=== PATIENT | male | born 1975 ===

== ENCOUNTER 2023-12-30 16:46 | Emergency (ER) | payer MEDICAID, SELFPAY ==
[2023-12-30 16:55] VITALS: BP 168/84; PULSE 92; RESP 20; TEMP 36.7; O2SAT 98; BMI 33.1
--- NOTE | 2023-12-30 16:56 | ED_ITS ---
HPI - General Adult General Chief complaint: General Medical Stated complaint: itchiness/ pain in penis, painful urination Time Seen by Provider: 12/30/23 19:28 Source: patient, RN notes reviewed and old records reviewed Mode of arrival: ambulatory History of Present Illness HPI narrative: 48-year-old male presents for evaluation of burning itching to to his penis. Patient reports that his partner tested positive for syphilis within the last 2 weeks. The patient initially tested negative but he was not having symptoms until a couple of days ago He now complains of burning itching to his penis and with urinating He also reports itching around his anus Denies any unusual discharge, testicular pain and swelling Denies any fevers, chills Related Data Allergies Allergy/AdvReac Type Severity Reaction Status Date / Time diphenhydramine Allergy Palpitation Verified 12/30/23 16:58 [From Hardik] s Review of Systems 2 Constitutional: Constitutional: Denies body ache(s), Denies chills and Denies fever(s) Eyes: Eyes: Denies blurry vision ENT: Denies sore throat Cardiovascular: Cardiovascular: Denies chest pain and Denies dyspnea Respiratory: Respiratory: Denies cough and Denies dyspnea Gastrointestinal: Gastrointestinal: Denies abdominal pain, Denies nausea and Denies vomiting Genitourinary: Genitourinary: Denies hematuria, Reports genital lesions, Reports genital pain, Reports dysuria and Denies penile discharge Musculoskeletal: Musculoskeletal: Denies back pain Psychiatric: Psychiatric: Denies suicidal ideation PMFSH Social History Social History Advance Directives: No Advance Directives Information Provided: No Do you have a plan to hurt others: No Plan Physical Exam ED Vital Signs: Vital Signs - 24 hr 12/30/23 16:55 Temperature 98.1 F Pulse Rate 92 Respiratory Rate 20 Blood Pressure 168/84 H Pulse Oximetry 98 Oxygen Delivery Method Room Air BMI result Body Mass Index 33.1 Const General: healthy appearing, comfortable, no acute distress, alert and awake Nutritional Appearance: well nourished Orientation/consciousness: patient oriented x3 HENMT Head: Yes normocephalic and Yes atraumatic Neck Neck: Yes full ROM Resp Effort & Inspection: normal respiratory effort, able to speak in complete sentences and not labored Male General Exam: No Genital lesions present Penis: uncircumcised, erythematous, no masses, no nodules, no papules, no pustules and No Genital lesions present Meatus: no meatla discharge and No Blood at meatus present Skin General skin exam: elasticity normal Neuro General: patient oriented x3 Cranial nerves: Yes Bilaterally intact EOM present Cognition (Neuro): normal cognition Extrem Other: Moving all extremities well without any obvious deformities Course Course Course Narrative: This is an RME done by JEREMI Ortega: Additional HPI, ROS, PE not included below will be deferred to primary provider. 48 yo m presents w/ partner concerned for rash and discomfort in trudy area rectum and penis. Partner recently tested + for syphillis and is getting treated for it. He thinks he tested negative. No penile trauma, discharge, fevers, chills, cp, sob, nausea, vomiting, abd pain. He does report he has a rash down there. Had labs at [facility] Appearance: Alert.? Oriented X3.? No acute cardiopulmonary distress distress.? CVS: Pulses normal.? Respiratory: No respiratory distress.? Skin: ? Normal skin color. Extremities: 5/5 strength to bilateral upper and lower extremities Sensative exam: not done due to lack of privacy in triage Neuro: Oriented X 3.? No motor deficit.? No sensory deficit. Medical Decision Making Medical Decision Making [facility] Narrative: 48-year-old male presents for evaluation of redness, pain to the tip his penis. This areas erythematous. There are no ulcerations or lesions. He reports his partner recently tested positive for syphilis. The patient was tested for numerous STIs. He will be treated with penicillin G for syphilis given the positive contacts and the fact that he is now asymptomatic. Differential Diagnosis Differential Diagnoses: The differential diagnosis associated with the presentation includes Syphilis Urethritis Acute rash Phimosis Balanitis Lab Data [facility] Lab Attestation statement: I reviewed the patient's lab results. No leukocytosis the patient has a very mild anemia with a hemoglobin 13.8 and hematocrit 38.3. MCV is within normal limits. Platelet count is 157 K. electrolytes within normal limits 12/30/23 17:16 12/30/23 17:16 Labs: Lab Results 12/30/23 12/30/23 Range/Units 17:16 17:26 WBC 5.8 (4.8-10.8) X10*3/uL RBC 4.52 L (4.60-5.80) X10*6/uL Hgb 13.8 L (14.0-18.0) g/dl Hct 38.3 L (42.0-52.0) % MCV 84.7 (80.0-98.0) fL MCH 30.5 (27.0-33.0) pg MCHC 36.0 (31.0-36.0) g/dl RDW 11.9 (11.0-16.0) % Plt Count 157 L (160-400) X10*3/uL MPV 11.9 (9.4-12.4) fL Immature Gran % (Auto) 0.3 (0.0-0.4) % Neut % (Auto) 63.8 (45-73) % Lymph % (Auto) 26.2 (20-40) % [place] % (Auto) 8.0 (2-11) % Eos % (Auto) 1.4 (0-4) % Baso % (Auto) 0.3 (0-2) % Lymph # (Auto) 1.5 (1.2-4.9) X10*3/uL [place] # (Auto) 0.5 (0.1-1.2) X10*3/uL Eos # (Auto) 0.1 (0.0-0.4) X10*3/uL Baso # (Auto) 0.0 (0.0-0.2) X10*3/uL Abs Immat Gran (auto) 0.02 (0.00-0.03) X10*3/uL Absolute Neuts (auto) 3.7 (2.0-8.3) x10*3/uL Absolute Nucleated RBC 0.000 (0.0-0.012) X10*3/uL Nucleated RBC % (auto) 0.0 (0.0-0.2) /100WBC Sodium 137 (135-145) mmol/L Potassium 3.9 (3.3-5.1) mmol/L Chloride 104 (96-108) mmol/L Carbon Dioxide 19 L (22-29) mmol/L Anion Gap 18 (12-20) BUN 14 (9-16) mg/dL Creatinine 0.84 (0.5-1.4) mg/dL Estim Creat Clear Calc 105.0 Estimated GFR > 60 Random Glucose 280 H (60-115) mg/dL Calcium 8.7 (8.4-10.2) mg/dL Magnesium 2.0 (1.6-2.6) mg/dL Total Bilirubin 0.4 (0.0-1.0) mg/dL AST 20 (5-37) U/L ALT 52 H (0-40) U/L Alkaline Phosphatase 89 (39-117) U/L Total Protein 6.8 (6.5-8.0) g/dL Albumin 4.1 (3.5-5.0) g/dL Urine Color Yellow Urine Appearance Clear Urine pH 6.5 (5.0-9.0) Ur Specific [place] 1.020 (1.005-1.025) Urine Protein Negative (Neg-Trace) mg/dL Urine Glucose (UA) >=1000 H (Negative) mg/dL Urine Ketones Trace (Negative) mg/dL Urine Blood Negative (Negative) Urine Nitrite Negative (Negative) Ur Leukocyte Esterase Negative (Negative) Urine RBC 0-2 (0-2) /HPF Urine WBC 0-5 (0-5) /HPF Ur Squamous Epith Cells 0-2 (0-2) /HPF Urine Bacteria None Seen (None Seen) Hyaline Casts 0-2 (0-2) /LPF Discharge Plan Discharge Clinical Impression: Dysuria Patient Disposition: Home, Self-Care Instructions: Syphilis (ED) Additional Instructions: Your blood work was reassuring. Your urine sample was negative for UTI. Your STI testing will not result today, we will call you with any positive results. You were treated for syphilis given your positive contact Follow-up with your primary doctor, return for new or worsening symptoms Print Language: Swedish
[2023-12-30 17:20] LABS: MANUAL DIFF FLAG NO
[2023-12-30 17:21] LABS: Basophils Percent Auto 0.3 % (0-2); Eosinophils Absolute Auto 0.1 X10*3/uL (0.0-0.4); Eosinophils Percent Auto 1.4 % (0-4); Hematocrit 38.3 % (42.0-52.0); Hemoglobin 13.8 g/dl (14.0-18.0); Imm Gran Abs Auto 0.02 X10*3/uL (0.00-0.03); Imm Gran Pct Auto 0.3 % (0.0-0.4); Lymphocytes Absolute Auto 1.5 X10*3/uL (1.2-4.9); Lymphocytes Percent Auto 26.2 % (20-40); Mean Corpuscular Hemoglobin 30.5 pg (27.0-33.0); Mean Corpuscular Volume 84.7 fL (80.0-98.0); Mean Platelet Volume 11.9 fL (9.4-12.4); Monocytes Absolute Auto 0.5 X10*3/uL (0.1-1.2); Neutrophils Absolute Auto 3.7 x10*3/uL (2.0-8.3); Neutrophils Percent Auto 63.8 % (45-73); Platelet Count 157 X10*3/uL (160-400); Red Blood Count 4.52 X10*6/uL (4.60-5.80); Red Cell Distribution Width 11.9 % (11.0-16.0); White Blood Count 5.8 X10*3/uL (4.8-10.8)
[2023-12-30 17:34] LABS: Appearance Urine Clear; Color Urine Yellow; Glucose Urine UA >=1000 mg/dL (Negative); Leukocyte Esterase Urine Negative (Negative); Nitrite Urine Negative (Negative); PH 6.5 (5.0-9.0); UMIC TRIGGER UACC YES; Urine Blood Negative (Negative); Urine Ketones Trace mg/dL (Negative); Urine Protein Negative (Neg-Trace)
[2023-12-30 17:38] LABS: Alanine Aminotransferase 52 U/L (0-40); Albumin Level 4.1 g/dL (3.5-5.0); Alkaline Phosphatase 89 U/L (39-117); Anion Gap 18 (12-20); Aspartate Amino Transferase 20 U/L (5-37); Bilirubin Total 0.4 mg/dL (0.0-1.0); Blood Urea Nitrogen 14 mg/dL (9-16); Calcium 8.7 mg/dL (8.4-10.2); Carbon Dioxide 19 mmol/L (22-29); Chloride 104 mmol/L (96-108); Estimated Glomerular Filt Rate > 60; Glucose Random 280 mg/dL (60-115); Potassium 3.9 mmol/L (3.3-5.1); Sodium 137 mmol/L (135-145); Total Protein 6.8 g/dL (6.5-8.0)
[2023-12-30 17:39] LABS: Bacteria Urine None Seen (None Seen); Hyaline Casts Urine 0-2 /LPF (0-2); RBC Urine 0-2 /HPF (0-2); Squamous Epithelial Cell Urine 0-2 /HPF (0-2); WBC Urine 0-5 /HPF (0-5)
[2023-12-30] MEDS: Penicillin G Benzathine 2,400,000 UNIT/4 ML SYRINGE 2400000 UNIT IM (20:12)
--- NOTE | 2023-12-30 20:19 | PC.NURSE ---
pt medicated per order and discharged with help of guest service representative
[2023-12-30 20:20] VITALS: BP 151/78; PULSE 88; RESP 18; TEMP 36.7; O2SAT 98
[2023-12-31 03:40] LABS: CT PCR NOT DETECTED (Not Detect.); NG PCR NOT DETECTED (Not Detect.)
[2023-12-31 10:16] LABS: Syphilis Screen Nonreactive (Nonreactive)
[2023-12-31 10:23] LABS: HBS Num1 > 1000.00 mIU/mL (0-7.99); HBc Num1 0.12 S/CO (0.00-0.79); HBsAGNum1 0.33 S/CO (0.00-0.99); HIV AB/AG Nonreactive (Nonreactive); HIV Num 1 0.05 S/CO (0.00-0.99); Hepatitis A Antibody IgM 0.15 Index (0-0.79); Hepatitis B Core Antibody Nonreactive (Nonreactive); Hepatitis B Surface Antigen Negative (Negative); ~HepC Num1 0.13 S/CO (0.00-0.79); ~Hepatitis A Antibody IgM Nonreactive (Nonreactive); ~Hepatitis B Surface Antibody REACTIVE (Nonreactive); ~Hepatitis C Antibody Nonreactive (Nonreactive)
== END 2023-12-30 20:21 | disposition home or self-care (01) ==
PROVIDERS: Physician Assistant; Emergency Provider Internal Medicine
DX: R30.0 Dysuria (principal); R21 Rash and other nonspecific skin eruption; Z72.89 Other problems related to lifestyle
CPT/HCPCS: 0353U; 36415; 80053; 81001; 83735; 85025; 86704; 86706; 86709; 86780; 86803; 87340; 87389; 96372; 99282; 99284; J0561

== ENCOUNTER 2024-01-09 10:34 | Emergency (ER) | payer MEDICAID, SELFPAY ==
[2024-01-09 10:48] VITALS: BP 152/117; PULSE 96; RESP 18; TEMP 36.4; O2SAT 97; BMI 32.8
[2024-01-09 12:00] VITALS: BP 127/86; PULSE 105; TEMP 36.6; O2SAT 96
--- NOTE | 2024-01-09 12:22 | ED.MALEGU ---
HPI - Male Genitourinary General Chief complaint: Urogenital-Male Stated complaint: ?? per jazzy private Time Seen by Provider: 01/09/24 12:19 Source: patient, RN notes reviewed and old records reviewed Mode of arrival: ambulatory History of Present Illness ED Provider: Capri Bullard PA-C HPI Narrative: 48-year-old male with no significant past medical history presenting to the ED complaining of continued penile discomfort/irritation and erythema & improving rash s/p tested positive for syphilis recently. Patient was seen and treated in our ED on 12/30/2023 for similar symptoms, had negative testing including syphilis testing at that time, & was empirically treated with penicillin G. reports continued concern for syphilis. Denies dysuria/hematuria, penile lesions, penile discharge, testicular pain/swelling, fever/chills, travel Related Data Previous Rx's ?Medication ?Instructions ?Recorded clotrimazole 1 % topical cream 1 appl topical BID 2 weeks #15 01/09/24 grams Allergies Allergy/AdvReac Type Severity Reaction Status Date / Time diphenhydramine Allergy Palpitation Verified 01/09/24 10:50 [From Hardik] s Review of Systems Review of Systems: Constitutional: No Fever, No Chills, No Fatigue, No Malaise ENT/Mouth: No Hearing loss, No Ear Pain, No Nasal Congestion, No sore throat, No Rhinorrhea Cardiovascular: No Chest Pain, No SOB Respiratory: No Cough, No Sputum Gastrointestinal: No Nausea, No Vomiting, No Abdominal pain Genitourinary: +penile discomfort/irritation, No irregular bleeding, No Dysuria, No Urinary Frequency, No Hematuria, No Urinary Incontinence/retention, No Flank Pain Musculoskeletal: No joint pain, No Myalgias, No Joint Swelling Skin: No Skin Lesions, No rash Neuro: No Weakness, No Numbness, No Paresthesias Yes all other systems are reviewed and are negative Constitutional: Constitutional: Reports as per [facility] Past Medical History Attestation statement: The following information was validated with the patient. Source: old records reviewed Social History Social History Advance Directives: No Advance Directives Information Provided: Yes Physical Exam Vital Signs: Vital Signs: Last Vital Signs Temp 97.9 F 01/09/24 12:00 Pulse 105 H 01/09/24 12:00 Resp 18 01/09/24 10:48 BP 127/86 01/09/24 12:00 Pulse Ox 96 01/09/24 12:00 O2 Del Method Room Air 01/09/24 12:00 BMI result Body Mass Index 32.8 Const: General: cooperative, healthy appearing and no acute distress Orientation/consciousness: patient oriented x3 Limitations: no limitations HEENT: Head: Yes normal to inspection and Yes atraumatic Ears: hearing grossly normal bilaterally General nose exam: Normal external nose present Face and sinus: Yes normal facial exam Eyes: General: appearance normal, both eyes and all related structures EOM: EOMs intact bilaterally Neck: Neck: Yes normal visual inspection and Yes no meningeal signs Resp: Effort & Inspection: normal respiratory effort and no respiratory distress Cardio: Rate: regular rate GI: Inspection: Yes normal to inspection Palpation (GI): Soft to palpation, nontender, no guarding and not rigid : Other: No lesions/open wounds, meatal discharge or blood. No pustules General: Yes no CVA tenderness Penis: uncircumcised and erythematous (Mild erythema to distal shaft and trudy-meatus) Back/Spine/Pelvis: Back: no CVA tenderness Skin: Other: scant erythematous rash noted to abdomen/back without streaking/crusting or open wounds. Wounds: no wounds Neuro: General: patient oriented x3, tone normal and no meningeal signs Cranial nerves: Yes CN's II-XII intact bilaterally Gait exam (Neuro): Normal gait present Extrem: General: Yes normal to inspection Course Course Course Narrative: -UA noninfected Medical Decision Making Medical Decision Making MDM Narrative: 48-year-old male with no significant past medical history presenting to the ED complaining of continued penile discomfort/irritation and erythema & improving rash s/p tested positive for syphilis recently. On exam mildly tachycardic likely from anxiety, NAD, nontoxic appearing, physical exam as noted above. Concern for possible balanitis vs irritation worse latent syphilis although recent testing negative for syphilis, chlamydia/gonorrhea, HIV and hepatitis. Low suspicion for testicular torsion or intra-abdominal pathology Plan: UA, infectious disease follow-up. Case discussed with ED attending Dr. Callahan who is in agreement with plan Please refer to course for remaining clinical decision making, interpretation of labs/imaging results, and discussions with consultants and/or family members. Results discussed with patient including worrisome signs and symptoms and strict return precautions, and when to return to the emergency department. They verbalized understanding and feel safe for discharge at this time. Differential Diagnosis Differential Diagnoses: The differential diagnosis associated with the presentation includes As above Lab Data MDM Lab Attestation statement: I reviewed the patient's lab results. Labs: Lab Results 01/09/24 Range/Units 13:16 Urine Color Yellow Urine Appearance Clear Urine pH 5.5 (5.0-9.0) Ur Specific [place] >= 1.030 H (1.005-1.025) Urine Protein Negative (Neg-Trace) mg/dL Urine Glucose (UA) >=1000 H (Negative) mg/dL Urine Ketones Trace (Negative) mg/dL Urine Blood Negative (Negative) Urine Nitrite Negative (Negative) Ur Leukocyte Esterase Negative (Negative) Urine RBC 0-2 (0-2) /HPF Urine WBC 0-5 (0-5) /HPF Ur Squamous Epith Cells 0-2 (0-2) /HPF Urine Bacteria None Seen (None Seen) Hyaline Casts 0-2 (0-2) /LPF External Record Review External record reviewed: Inpatient record, Office record, Outpatient record, Prior outpatient labs, Prior outpatient radiology, Primary care record and Outside ED record Tests considered The following testing was considered but not selected: As above Discharge Plan Discharge Clinical Impression: Possible exposure to STI, Balanitis Patient Disposition: Home, Self-Care Instructions: Syphilis (ED), Balanitis (ED) Additional Instructions: PLEASE FOLLOW-UP WITH INFECTIOUS DISEASE, CALL TOMORROW TO MAKE AN APPOINTMENT Clotrimazole cream will help with penile irritation Avoid sexual contact until you follow-up with specialist If rash or penile discomfort worsens, you have fever or your unable to urinate return to the ED Prescriptions: New clotrimazole 1 % cream 1 appl topical BID 14 Days Qty: 15 0RF Referrals: JANIE JURADO MD [Physician] - 1 day Print Language: Bengali
--- NOTE | 2024-01-09 13:22 | PC.NURSE ---
PT SITTING IN BEDSIDE CHAIR IN NO OUTWARD DISTRESS, HE WAS ABLE TO PROVIDE A URINE SPECIMEN, AWAITING RESULTS
[2024-01-09 13:31] LABS: Appearance Urine Clear; Color Urine Yellow; Glucose Urine UA >=1000 mg/dL (Negative); Leukocyte Esterase Urine Negative (Negative); Nitrite Urine Negative (Negative); PH 5.5 (5.0-9.0); Specific Gravity - Urine >= 1.030 (1.005-1.025); UMIC TRIGGER UACC YES; Urine Blood Negative (Negative); Urine Ketones Trace mg/dL (Negative); Urine Protein Negative (Neg-Trace)
[2024-01-09 13:40] LABS: Bacteria Urine None Seen (None Seen); Hyaline Casts Urine 0-2 /LPF (0-2); RBC Urine 0-2 /HPF (0-2); Squamous Epithelial Cell Urine 0-2 /HPF (0-2); WBC Urine 0-5 /HPF (0-5)
[2024-01-09 14:16] VITALS: BP 127/86; PULSE 105; RESP 18; TEMP 36.6; O2SAT 96
== END 2024-01-09 14:17 | disposition home or self-care (01) ==
PROVIDERS: Physician Assistant; Emergency Provider Student in an Organized Health Care Education/Training Program
DX: N48.1 Balanitis (principal); Z20.2 Contact with and (suspected) exposure to infections with a predominantly sexual mode of transmission
CPT/HCPCS: 81001; 99283

== ENCOUNTER 2024-01-10 15:38 | Outpatient (REF) | payer MEDICAID, SELFPAY ==
[2024-01-12 14:41] LABS: Estimated Glomerular Filt Rate > 60
[2024-01-12 14:44] LABS: Blood Urea Nitrogen 16 mg/dL (9-16); Carbon Dioxide 17 mmol/L (22-29); Chloride 88 mmol/L (96-108); Potassium 4.4 mmol/L (3.3-5.1); Sodium 123 mmol/L (135-145)
[2024-01-12 14:45] LABS: Glucose Random 346 mg/dL (60-115)
== END 2024-01-10 15:39 | disposition home or self-care (01) ==
LOC: HO.HHCL 15:38
PROVIDERS: Visit Provider Nurse Practitioner Family
DX: Z20.2 Contact with and (suspected) exposure to infections with a predominantly sexual mode of transmission (principal)
CPT/HCPCS: 36415; 80048; 86592

== ENCOUNTER 2024-01-30 16:24 | Outpatient (REF) | payer MEDICAID, SELFPAY ==
[2024-01-30 18:04] LABS: Anion Gap 13 (12-20); Blood Urea Nitrogen 15 mg/dL (9-16); Calcium 8.9 mg/dL (8.4-10.2); Carbon Dioxide 23 mmol/L (22-29); Chloride 111 mmol/L (96-108); Estimated Glomerular Filt Rate > 60; Glucose Random 109 mg/dL (60-115); Potassium 3.7 mmol/L (3.3-5.1); Sodium 143 mmol/L (135-145)
[2024-02-01 15:37] LABS: RPR Rapid Plasma Reagin NON-REACTIVE (NON-REACTIVE)
== END 2024-01-30 16:25 | disposition home or self-care (01) ==
LOC: HO.HHCL 16:24
PROVIDERS: Visit Provider Nurse Practitioner Family
DX: Z20.2 Contact with and (suspected) exposure to infections with a predominantly sexual mode of transmission (principal)
CPT/HCPCS: 36415; 80048; 86592

== ENCOUNTER 2024-02-08 12:24 | Outpatient (REF) | payer MEDICAID, SELFPAY ==
--- NOTE | ~2024-02-08 | XR_ITS ---
EXAMINATION: XR CERVICAL SPINE CLINICAL INFORMATION: Neck pain COMPARISON: None available. TECHNIQUE: 3 views of the cervical spine were obtained. FINDINGS: There is moderate disc space narrowing C5-C6. Prevertebral soft tissues normal. No fracture or destructive process. The lateral masses of C1 and odontoid intact. XR/XR cervical spine 3V IMPRESSION: Degenerative changes observed. No fracture.
== END 2024-02-08 12:25 | disposition home or self-care (01) ==
LOC: HO.HHCX 12:24
PROVIDERS: Visit Provider Emergency Medicine
DX: M54.2 Cervicalgia (principal)
CPT/HCPCS: 72040

== ENCOUNTER 2024-02-17 17:22 | Outpatient (REF) | payer MEDICAID, SELFPAY | END 2024-02-17 17:23 | disposition home or self-care (01) | LOC: HO.LNP 17:22 | PROVIDERS: Visit Provider Emergency Medicine | DX: K21.9 Gastro-esophageal reflux disease without esophagitis (principal) | CPT/HCPCS: 87338 ==

== ENCOUNTER 2024-04-18 15:07 | Outpatient (REF) | payer MEDICAID, SELFPAY ==
--- NOTE | ~2024-04-18 | XR_ITS ---
EXAMINATION: XR SHOULDER, LEFT CLINICAL INFORMATION: Left shoulder pain. Adhesive capsulitis. COMPARISON: None available. TECHNIQUE: AP external rotation, Grashey, scapular Y, and axillary views of the left shoulder. FINDINGS: The bones and soft tissues are normal. No fracture. Glenohumeral and acromioclavicular alignment is anatomic with normal joint space. No abnormal soft tissue calcifications. XR/XR shoulder LT min 2V IMPRESSION: Unremarkable examination. Electronically signed by: Eddie Chan MD 05/03/2024 08:40 PM EDT
== END 2024-04-18 15:08 | disposition home or self-care (01) ==
LOC: HO.HHCX 15:07
PROVIDERS: Visit Provider Student in an Organized Health Care Education/Training Program
DX: M75.02 Adhesive capsulitis of left shoulder (principal)
CPT/HCPCS: 73030

== ENCOUNTER 2024-06-20 14:40 | Outpatient (REF) | payer MEDICAID, SELFPAY ==
--- NOTE | ~2024-06-20 | XR_ITS ---
EXAMINATION: XR LUMBOSACRAL SPINE CLINICAL INFORMATION: Low back pain COMPARISON: None available. TECHNIQUE: Three views of the lumbosacral spine. FINDINGS: No fracture or destructive process or alignment abnormality. Vertebral body heights and disc space heights are preserved. XR/XR lumbar spine 2-3V IMPRESSION: Unremarkable examination. Electronically signed by: Robel Burk MD 06/20/2024 05:54 PM EST
== END 2024-06-20 14:41 | disposition home or self-care (01) ==
LOC: HO.HHCX 14:40
PROVIDERS: Visit Provider Student in an Organized Health Care Education/Training Program
DX: M54.50 Low back pain, unspecified (principal)
CPT/HCPCS: 72100

== ENCOUNTER 2024-09-26 09:47 | Outpatient (REF) | payer MEDICAID, SELFPAY ==
--- NOTE | ~2024-09-26 | XR_ITS ---
EXAMINATION: XR HIP, RIGHT CLINICAL INFORMATION: 4 month h/o atraumatic right hip pain COMPARISON: None available. TECHNIQUE: Two views of the right hip. FINDINGS: No fracture. Alignment is anatomic. Hip joint space is maintained. Soft tissues are unremarkable. XR/XR hip RT min 2V IMPRESSION: Normal right hip. Electronically signed by: Douglas Parker MD 09/26/2024 10:37 AM KAVIN
--- OUTSIDE RECORDS SUMMARY | 2024-09-26 11:21 | XMS_ITS | Encounter Summary ---
Author Organization [employer] Address [address] [place] [address] 7 [place] [address] Care Team Providers Care Lamp Shade Sewer Name Role Phone Sherly Ballard MD Primary Care Pro vider Reason for Visit * Reason Onset Date Comments Nurse Triage 08/28/2024 Encounter Details Date Type Department Care Team ([facility] st Contact Info) Description 08/28/2024 Telephone [facility] MED[facility]INE [address] [place], [place] [phone] Sherly Ballard MD [address] [place] [address] Nurse Triage Social History Tobacco Use Types Packs/Day Years Used Date Smoking Tobacco: Former Cigarettes Passive Smoke Exposure: Past Smokeless Tobacco: Never Comments:Started smoking 28 y of age until now , smokes 5 cig a week -aprox 0.5 to 1 a day . PQT calc 1.05 Alcohol Use Standard Drinks/Week Comments Yes 0 (1 standard drink = 0.6 oz pur e alcohol) social Depression Answer Date Recorded Patient Health Questionnaire-9 Score 6 05/02/2024 Patient Health Questionnaire-9 Score 6 05/02/2024 Last PHQ-9: Questionnaire Data Not on file 0 05/02/2024 Housing Stability Answer Date Recorded What is your housing situation today? I have tonya anna 04/25/[address] you li ve. Do you have problems with any of the following? None of the above 04/25/2024 Food Insecurity Answer Date Recorded Within the past 12 months, y ou worried that your food would run out before you got money to buy more: Never True 04/25/2024 Within the past 12 months,th e food you bought just didn't last and you didn't have enough money to get more: Never True 06/2024 Transportation Answer Date Recorded In the past 12 months, has l ack of transportation kept you from medical appts, meetings, work or from getting things needed for daily living? No 04/25/2024 Utilities Answer Date Recorded In the past 12 months, has t he electric, gas, oil or water company threatened to shut off services in your home? No 04/25/2024 Depression Answer Date Recorded Patient Health Questionnaire-2 Score 0 05/02/2024 Internet Access Answer Date Recorded Internet Access Q1 Yes 04/25/2024 Internet Access Q2 Not on file 04/25/2024 Sex and Gender Information Value Date Recorded Sex Assigned at Male 01/10/2024 1:01 PM EDT Legal Sex Male 12:57 PM EDT Gender Identity Male 01/10/2024 1:01 PM EDT Sexual Orientation Straight 01/10/2024 1: 01 PM EDT documented as of this encounter Miscellaneous Notes * Telephone Encounter - Selina Summers RN - 08/28/2024 9:38 AM EST called pt to triage, spoke to pt. through [employer] [facility]. pt states several days durationof congestion, cough, sore throat, fatigue,, body aches, and headache with mild fever. pt states does not know how high his fever went as he is taking Tylenol Q4 hours. pt denies known exposures, known high fever, rash, sob, vomiting or other associated symptoms. pt speaking in full sentences without pausing or audible distress/wheezing. advised home care: rest, fluids, steam, humidifier, warm saltwater gargles, lozenges, OTC pain or fever reliever as needed, and call back if worsening or new concerns. unable to verify insurance, listed as inactive. advised walk in center if needed as pt doesnot want to wait until tomorrow for appt. Protocol Used: Cough (Adult) Protocol-Based Disposition: See in Office or Video Visit Today or Tomorrow Video visit offer not recorded Positive Triage Questions: * Continuous (nonstop) coughing interferes with work or school and no improvement using cough treatment per Care Advice * Patient wants to be seen * All higher-acuity triage questions were negative Care Advice Discussed: * Reassurance and Education - Cough * Cough Medicines * Coughing Spells * Prevent Dehydration * Avoid Tobacco Smoke * Humidifier * Fever Medicines * Reasons To Call Back - Difficulty breathing - Cough lasts more than 3 weeks - Fever lasts more than 3 days - You become worse * Telephone Encounter - Jc Baird - 08/28/2024 8:25 AM EST Symptoms: Runny Nose, Fever, Body Aches Outcome: Schedule an appointment to be seen within 24 hours Reason: Caller denied all higher acuity questions The caller accepted this outcome. documented in this encounter Plan of Treatment Upcoming Encounters Date Type Department Care Team (Late st Contact Info) Description 10/03/2024 3:30 PM EST Clinical Support [facility] [address] [place] [phone] documented as of this encounter Visit Diagnoses Not on filedocumented in this encounter Additional Health Concerns Assessment Noted Time PHQ-9 Depression Total Score: 6 05/02/20 24 9:38 AM EDT documented as of this encounter Care Teams Lamp Shade Sewer Relationship Specialty Start Date End Date Sherly Ballard MD [address] [place] [id number] PCP - General Internal Medicine 05/02/24 documented as of this encounter
--- OUTSIDE RECORDS SUMMARY | 2024-09-26 11:22 | XMS_ITS | Encounter Summary ---
Author Organization [employer] Address [address] [place] [address] [address] [place] [address] Care Team Providers Care Management Trainer Name Role Phone Sherly Ballard MD Primary Care Pro vider Reason for Visit * Reason Onset Date Comments Nurse Triage 09/20/2024 Encounter Details Date Type Department Care Team ([facility] st Contact Info) Description 09/20/2024 Telephone [facility] MEDICINE [address] [place], [place] [phone] Sherly Ballard MD [address] [place] [address] Nurse Triage Social History Tobacco Use Types [...] encounter Miscellaneous Notes * Telephone Encounter - Erika Ordoñez RN - 09/20/2024 11:09 AM EST Called pt. Via S railroad firer/fireman while waiting for railroad firer/fireman , I see pt. Is currently in walk in [facility] and has arrived. Due to eye irriatation, swollen eyelid,redness. * Telephone Encounter - Al Ureña - 09/20/2024 10:40 AM EST Symptoms: Eye Allergy, Body Aches Outcome: Schedule an urgent appointment (within 4 hours) or talk to a nurse or provider soon Reason: Eyelid is red and swollen The caller accepted this outcome. documented in this encounter Plan of Treatment Upcoming Encounters Date Type Department Care Team (Late st Contact Info) Description 10/03/2024 3:30 PM EST Clinical Support [facility] MED[facility]INE [address] [place] [id number] documented as of this encounter Visit Diagnoses Not on filedocumented in this encounter Additional Health Concerns Assessment Noted Time PHQ-9 Depression Total Score: 6 05/02/20 24 9:38 AM EDT documented as of this encounter Care Teams Management Trainer Relationship Specialty Start Date End Date Sherly Ballard MD [address] [place] [id number] PCP - General Internal Medicine 05/02/24 documented as of this encounter
--- OUTSIDE RECORDS SUMMARY | 2024-09-26 11:22 | XMS_ITS | Encounter Summary ---
Author Organization [employer] Address [address] [facility] [address] [place] [address] Care Team Providers Care Low Altitude Air Defense Gunner Name Role Phone Sherly Ballard MD Primary Care Pro vider Encounter Details Date Type Department Care Team (Latest Contact Info) Description 09/26/2024 9:00 AM EST Office Visit 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 Social History Tobacco Use Types Packs/Day Years [...] PM EDT documented as of this encounter Last Filed Vital Signs Vital Sign Reading Time Taken Comments Blood Pressure 130/98 09/26/2024 9:46 AM EST Pulse 80 09/26/2024 8:48 AM EST Temperature 36.7 ??C (98.1 ??F) 09/26/2024 8:48 AM ES T Respiratory Rate 17 09/26/2024 8:48 AM EST Oxygen Saturation 97% 09/26/2024 8:48 AM EST Inhaled Oxygen Concentration - - Weight 83.6 kg (184 lb 6.4 oz) 09/26/2024 8:48 A M EST Height - - Body Mass Index 31.65 09/24/2024 3:47 PM EST documented in this encounter Plan of Treatment Upcoming Encounters Date Type Department Care Team (Late st Contact Info) Description 10/03/2024 3:30 PM EST Clinical Support [facility] [address] [place] [phone] documented as of this encounter Procedures Procedure Name Priority Date/Time Associated Diagnosis Comments XR HIP 2 OR 3 VIEWS RIGHT Routine 09/26/2024 9:48 AM EST Right hip pain documented in this encounter Results * XR Hip 2 or 3 Views Right (09/26/2024 9:48 AM EST) Anatomical Region Laterality Modality Lower Extremities, Hip Right Radiograp hic Imaging 09/26/2024 9:48 AM EST Narrative 09/26/2024 10:40 AM EST ?[facility] ?[address] ?[place], [place] [address] ?XRay Report ? Signed ? Patient: Mirza Pugh,Rakan ?MR#: [id number] ?? [id number] ? : 1975 ?Acct:[id number] ? Age/Sex: 49 / M ?ADM Date: 09/26/24 ? Loc: HO.HHCX ? Attending Dr: Fernando Madrid MD ? Ordering Physician: FERNANDO MADRID MD ?? Date of Service: 09/26/24 ?? Procedure(s): XR hip RT min 2V ?? Accession Number(s): [id number] ? cc: FERNANDO MADRID MD ? EXAMINATION: ?? XR HIP, RIGHT ? CLINICAL INFORMATION: ?? 4 month h/o atraumatic right hip pain ? COMPARISON: ?? None available. ? TECHNIQUE: ?? Two views of the right hip. ? FINDINGS: ?? No fracture. Alignment is anatomic. Hip joint space is maintained. Soft ?? tissues are unremarkable. ? XR/XR hip RT min 2V ?? IMPRESSION: ?? Normal right hip. ? Electronically signed by: ??Douglas Parker MD ??09/26/2024 10:37 AM EST RP ? Dictated By: ?Douglas Parker MD ? Signed By: ?<Electronically signed by Douglas Parker MD in OV> ?09/26/24 1037 ? DD/ 0948 ? TD/TT: 09/26/24 1008 ? Rail Washer: MSM ? Procedure Note Tamika, Image - 09/26/2024 [facility] [address] [place] [address] XRay Report Signed Patient: Rakan Gutierrez#: [id number] : 1975Acct:[id number] Age/Sex: 49 / MADM Date: 09/26/24 Loc: HO.HHCX Attending Dr: Fernando Madrid MD Ordering Physician: FERNANDO MADRID MD Date of Service: 09/26/24 Procedure(s): XR hip RT min 2V Accession Number(s): [id number] cc: FERNANDO MADRID MD EXAMINATION: XR HIP, RIGHT CLINICAL INFORMATION: 4 month h/o atraumatic right hip pain COMPARISON: None available. TECHNIQUE: Two views of the right hip. FINDINGS: No fracture. Alignment is anatomic. Hip joint space is maintained. Soft tissues are unremarkable. XR/XR hip RT min 2V IMPRESSION: Normal right hip. 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
--- OUTSIDE RECORDS SUMMARY | 2024-09-26 11:22 | XMS_ITS | Encounter Summary ---
Author Organization [employer] Address [address] [facility] 7[address] [place] [address] Care Team Providers Care Tissue Technologist Name Role Phone Sherly Ballard MD Primary Care Pro vider Encounter Details Date Type Department Care Team (Late Contact Info) Description 04/15/2024 Orders Only [facility] [address] [place], [place] [phone] Bhavana Cary FNP [address] [place] [address] Sexually transmitted disease exposure (Primary Dx) Social History Tobacco Use Types Packs/Day Years Used Date Smoking Tobacco: Former Cigarettes Passive Smoke Exposure: Past Smokeless Tobacco: Never Sex and Gender Information Value Date Recorded Sex Assigned at Male 01/10/2024 1:01 PM EDT Legal Sex Male 12:57 PM EDT Gender Identity Male 01/10/2024 1:01 PM EDT Sexual Orientation Straight 01/10/2024 1: 01 PM EDT documented as of this encounter Plan of Treatment Upcoming Encounters Date Type Department Care Team (Late Contact Info) Description 10/03/2024 3:30 PM EST Clinical Support [facility] [address] [place] [phone] Scheduled Orders Name Type Priority Associated Diagnoses Orde r Schedule RPR (Monitor) with Reflex to??[facility] Routine Sexually transmitted disease exposure Expected: 04/15/2024 (Approximate), Expires: 04/15/2025 documented as of this encounter Visit Diagnoses Diagnosis Sexually transmitted disease exposure- Primary Contact with or exposure to venereal diseases documented in this encounter Care Teams Tissue Technologist Relationship Specialty Start Date End Date Sherly Ballard MD [address] [place] [phone] PCP - General Internal Medicine 05/02/24 documented as of this encounter
--- OUTSIDE RECORDS SUMMARY | 2024-09-26 11:22 | XMS_ITS | Encounter Summary ---
Author Organization [employer] Address [address] [place] [address] Care Team Providers Care Recreation Attendant Name Role Phone Sherly Ballard MD Primary Care Pro vider Reason for Visit * Reason Comments Eye Problem Encounter Details Date Type Department Care Team (Latest Contact Info) Description 09/24/2024 4:00 PM EST Office Visit [facility] [address] [place] [phone] Natacha Mendieta MD [address] [place] [address] Allergic conjunctivitis of both eyes (Primary Dx); Right hip pain; Primary hypertension Social History Tobacco Use Types Packs/Day Years Used Date Smoking Tobacco: Former Cigarettes Passive Smoke Exposure: Past Smokeless Tobacco: Never Tobacco Cessation:Counseling Given: Not Answered Comments:Started smoking 28 y of age until [...] your housing situation today? I have tonya castillo 04/25/[address] you li [...] Sign Reading Time Taken Comments Blood Pressure 158/98 09/24/2024 3:47 PM EST Pulse 85 09/24/2024 3:47 PM EST Temperature 36.6 ??C (97.9 ??F) 09/24/2024 3:47 PM ES T Respiratory Rate 16 09/24/2024 3:47 PM EST Oxygen Saturation - - Inhaled Oxygen Concentration - - Weight 83.6 kg (184 lb 6.4 oz) 09/24/2024 3:47 P M EST Height 162.6 cm (5' 4 ) 09/24/2024 3:47 PM EST Body Mass Index 31.65 09/24/2024 3:47 PM EST documented in this encounter Progress Notes * Natacha Mendieta MD - 09/24/2024 4:00 PM EST SUBJECTIVE: Rakan Pugh is a 49 y.o. year old male who presents for Walk In Center/itchy eyes . Deniesrecent illness, injury, or hospitalization. Acute Concerns: Patient complaining of bilateral eye itchiness for approximately 1 week after using antibiotic ointment to both eyes apparently related to conjunctivitis. He has occasional blurred vision, no fever, chills, headache. He was treated for COVID last month, he does not have any other symptoms at this time. 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 He also complains of persistent right hip and leg pain on and off as needed pain for now he was seen for the symptoms approximately 2 months ago, x-rays were normal and he was given meloxicam, tizanidine and referred to PT. He has been unable to do PT due to work commitments. At this day, he has difficulty with ambulation, standing for long periods of time. Negative leg numbness, urinary or stoolretention. Social History Social History Narrative Not on file Patient Active Problem List Diagnosis Tinnitus of left ear HTN (hypertension) Health care maintenance Obesity Type 2 diabetes mellitus without complication, without long-term current use of insulin ([facility]) Tobacco use H. pylori infection GERD (gastroesophageal reflux disease) Chronic left shoulder pain Thumb pain, left Viral upper respiratory tract infection COVID-19 Allergic conjunctivitis of both eyes Right hip pain Family History Problem Relation Name Age of Onset Other (HTN) Mother Other (DM2,CAD) Father Other (unspecified cancer) Mother's Brother Throat cancer Maternal Grandmother Review of Systems Constitutional: Negative for fever. HENT: Negative for congestion, ear pain, rhinorrhea and sore throat. Eyes: Positive for redness, itching and visual disturbance. Negative for pain and discharge. Respiratory: Negative for cough and shortness of breath. Cardiovascular: Negative for chest pain. Gastrointestinal: Negative for abdominal pain, constipation, diarrhea and nausea. Endocrine: Negative for polydipsia. Genitourinary: Negative for dysuria and frequency. Musculoskeletal: Positive for arthralgias. Negative for back pain and neck pain. Neurological: Negative for dizziness, numbness and headaches. Psychiatric/Behavioral: Negative for agitation. OBJECTIVE: Vitals: 09/24/24 1547 BP: (!) 158/98 Pulse: 85 Resp: 16 Temp: 97.9 ??F (36.6 ??C) Physical Exam Constitutional: Appearance: Normal appearance. HENT: Right Ear: Tympanic membrane and ear canal normal. Left Ear: Tympanic membrane and ear canal normal. Mouth/Throat: Mouth: Mucous membranes are moist. Pharynx: No oropharyngeal exudate or posterior oropharyngeal erythema. Eyes: General: Allergic shiner present. Extraocular Movements: Extraocular movements intact. Conjunctiva/sclera: Right eye: Right conjunctiva is injected. Left eye: Left conjunctiva is injected. Pupils: Pupils are equal, round, and reactive to light. Cardiovascular: Rate and Rhythm: Normal rate and regular rhythm. Heart sounds: No murmur heard. Pulmonary: Breath sounds: Normal breath sounds. No wheezing. Abdominal: General: Bowel sounds are normal. Palpations: Abdomen is soft. Tenderness: There is no abdominal tenderness. Musculoskeletal: Cervical back: Normal range of motion. No tenderness. Lumbar back: Tenderness present. Right hip: Tenderness present. Decreased range of motion. Skin: General: Skin is warm. Neurological: General: No focal deficit present. Mental Status: He is alert and oriented to person, place, and time. Psychiatric: Mood and Affect: Mood normal. Problem List Items Addressed This Visit Allergic conjunctivitis of both eyes - Primary He has mostly dry eyes, advised to use natural tears as needed He will use ketotifen eyedrops twice daily to decrease itchiness and swelling of eyelids. Right hip pain Patient seems to have right hip bursitis, advised to reschedule appointment with PT and he could bring [place] documents to allow him to go to PT sessions. Restart meloxicam daily x 1 week then as needed HTN (hypertension) Uncontrolled today most likely related to right leg pain. Continue losartan and check BP at home, follow-up with PCP as scheduled or earlier if BP continues to be above 145/90. Follow Up: Current Outpatient Medications on File Prior to Visit Medication Sig Dispense Refill acetaminophen (Tylenol Extra Strength) 500 MG tablet Take 1 tablet (500 mg) by mouth every 6 (six) hours if needed for mild pain. 120 tablet 0 acetaminophen (Tylenol) 500 MG tablet Take 2 tablets (1,000 mg) by mouth every 8 (eight) hours if needed for moderate pain or fever. 30 tablet 1 albuterol 108 (90 Base) MCG/ACT inhaler Inhale 2 puffs every 4 (four) hours if needed for wheezing or shortness of breath. 18 g 1 Alcohol Swabs (Alcohol Prep) pads 1 each 4 times daily. 120 each 0 Blood Glucose Monitoring Suppl (RaiingStyle Lite) w/Device kit 1 each 4 times daily. 1 kit 0 Blood Pressure kit 1 each 2 times daily. 1 kit 0 Diclofenac Sodium 1 % gel To apply to the affected area 3 times a day 100 g 0 erythromycin (Romycin) 5 MG/GM ophthalmic ointment Apply to affected eye(s) 3 times daily for 5 days. Apply Amount per Dose: 0.25 inch (~0.5 cm) per dose. 3.5 g 0 fluticasone (Flonase) 50 MCG/ACT nasal spray Administer 1 spray into each nostril Once per day. 16 g 2 FREESTYLE LITE test strip Use as instructed 100 each 12 Lancets Ultra Thin 30G misc 1 each 4 times daily. 120 each 1 lidocaine (Lidoderm) 5 % patch Apply 1 patch topically Once per day. Remove & discard patch within 12 hours or as directed by MD. 30 patch 2 losartan (Cozaar) 25 MG tablet TAKE 1 TABLET BY MOUTH EVERY DAY 90 tablet 0 omeprazole (PriLOSEC) [address] capsule Take 1 capsule (20 mg) by mouth before breakfast and before evening meal for 14 days. Do not crush or chew. 28 capsule 0 Spacer/Aero-Holding Chambers (OptiChamber Lorena) misc 1 each every 4 (four) hours if needed (asthma). 1 each 0 tiZANidine (Zanaflex) 2 MG tablet Take 1 tablet (2 mg) by mouth every 6 (six) hours if needed for muscle spasms for up to 10 days. 30 tablet 0 [DISCONTINUED] ibuprofen 600 MG tablet Take 1 tablet (600 mg) by mouth every 8 (eight) hours if needed for mild pain for up to 7 days. HOLD MELOXICAM WHEN TAKING THIS MEDICATION (LEBANESE) 20 tablet 0 [DISCONTINUED] meloxicam (Mobic) 7.5 MG tablet Take 1 tablet (7.5 mg) by mouth Once per day. 60 tablet 11 No current facility-administered medications on file prior to visit. documented in this encounter Miscellaneous Notes * Assessment & Plan Note - Natacha Mendieta MD - 09/24/2024 4:31 PM EST Associated Problem(s): Allergic conjunctivitis of both eyes He has mostly dry eyes, advised to use natural tears as needed He will use ketotifen eyedrops twice daily to decrease itchiness and swelling of eyelids. * Assessment & Plan Note - Natacha Mendieta MD - 09/24/2024 4:31 PM EST Associated Problem(s): Right hip pain Patient seems to have right hip bursitis, advised to reschedule appointment with PT and he could bring FMLA documents to allow him to go to PT sessions. Restart meloxicam daily x 1 week then as needed * Assessment & Plan Note - Natacha Mendieta MD - 09/24/2024 4:30 PM EST Associated Problem(s): HTN (hypertension) Uncontrolled today most likely related to right leg pain. Continue losartan and check BP at home, follow-up with PCP as scheduled or earlier if BP continues to be above 145/90. documented in this encounter Plan of Treatment Upcoming Encounters Date Type Department Care Team (Late st Contact Info) Description 10/03/2024 3:30 PM EST Clinical Support [facility] [address] [place] [phone] documented as of this encounter Visit Diagnoses Diagnosis Allergic conjunctivitis of both eyes- Primary Other chronic allergic conjunctivitis Right hip pain Pain in joint, pelvic region and thigh Primary hypertension Unspecified essential hypertension documented in this encounter Additional Health Concerns Assessment Noted Time PHQ-9 Depression Total Score: 6 05/02/20 24 9:38 AM EDT documented as of this encounter Care Teams Recreation Attendant Relationship Specialty Start Date End Date Sherly Ballard MD [address] [place] [address] PCP - General Internal Medicine 05/02/24 documented as of this encounter
--- OUTSIDE RECORDS SUMMARY | 2024-09-26 11:22 | XMS_ITS | Encounter Summary ---
Author Organization [employer] Address [address] [facility] [address] [place] [address] Care Team Providers Care Commercial Hvac Technician Name Role Phone Sherly Ballard MD Primary Care Pro vider Reason for Visit * Reason Comments Med Refill Encounter Details Date Type Department Care Team (Late st Contact Info) Description 04/10/2024 Refill [facility] [address] [place] [phone] Bradly Vann MD [address] [place] [phone] Degenerative arthritis of metacarpophalangeal joint of right [...] Description 10/03/2024 3:30 PM EST Clinical Support [facility] [address] [place] [address] documented as of this encounter Visit Diagnoses Diagnosis 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
--- OUTSIDE RECORDS SUMMARY | 2024-09-26 11:22 | XMS_ITS | Encounter Summary ---
Author Organization [employer] Address [address] [facility] [address] [place] [address] Care Team Providers Care Capacity Planning Analyst Name Role Phone Sherly Ballard MD Primary Care Pro vider Reason for Visit * Reason Comments sick visit Encounter Details Date Type Department Care Team ([facility] st Contact Info) Description 08/29/2024 4:00 PM EST Office Visit [facility] [address] [place] [address] [phone] Natacha Mendieta MD [address] [place] [phone] Viral upper respiratory tract infection (Primary Dx); COVID-19 Social History Tobacco Use Types Packs/Day Years [...] Sign Reading Time Taken Comments Blood Pressure 156/93 08/29/2024 3:56 PM EST Pulse 86 08/29/2024 3:56 PM EST Temperature 37.1 ??C (98.8 ??F) 08/29/2024 3:56 PM ES T Respiratory Rate 20 08/29/2024 3:56 PM EST Oxygen Saturation 98% 08/29/2024 3:56 PM EST Inhaled Oxygen Concentration - - Weight 83.2 kg (183 lb 6.4 oz) 08/29/2024 3:56 P M EST Height 162.6 cm (5' 4 ) 08/29/2024 3:56 PM EST Body Mass Index 31.48 08/29/2024 3:56 PM EST documented in this encounter Progress Notes * Natacha Mendieta MD - 08/29/2024 4:00 PM EST SUBJECTIVE: Rakan Pugh is a 49 y.o. year old male who presents for [facility]/URI sxs . Denies recent illness, injury, or hospitalization. Acute Concerns: Sore throat, fever, chills, body aches x 3d. He has nasal congestion, SALINAS, eye pain since this morning. He lives with his and his stepchildren. and one of the kids have similar sxs. Social History Social History Narrative Not on file Patient Active Problem List Diagnosis Tinnitus of left ear HTN (hypertension) Health care maintenance Obesity Type 2 diabetes mellitus without complication, without long-term current use of insulin ([facility]) Tobacco use H. pylori infection GERD (gastroesophageal reflux disease) Chronic left shoulder pain Thumb pain, left Viral upper respiratory tract infection COVID-19 Family History Problem Relation Name Age of Onset Other (HTN) Mother Other (DM2,CAD) Father Other (unspecified cancer) Mother's Brother Throat cancer Maternal Grandmother Review of Systems Constitutional: Positive for chills, fatigue and fever. HENT: Positive for congestion and sore throat. Negative for ear pain and rhinorrhea. Eyes: Positive for pain. Negative for discharge. Respiratory: Negative for cough and shortness of breath. Cardiovascular: Negative for chest pain. Gastrointestinal: Negative for abdominal pain, constipation, diarrhea and nausea. Endocrine: Negative for polydipsia. Genitourinary: Negative for dysuria and frequency. Musculoskeletal: Positive for myalgias. Negative for arthralgias, back pain and neck pain. Neurological: Positive for headaches. Negative for dizziness and numbness. Psychiatric/Behavioral: Negative for agitation. OBJECTIVE: Vitals: 08/29/24 1556 BP: (!) 156/93 Pulse: 86 Resp: 20 Temp: 98.8 ??F (37.1 ??C) SpO2: 98% Physical Exam Constitutional: Appearance: Normal appearance. HENT: Right Ear: Tympanic membrane and ear canal normal. Left Ear: Tympanic membrane and ear canal normal. Mouth/Throat: Mouth: Mucous membranes are moist. Pharynx: No oropharyngeal exudate or posterior oropharyngeal erythema. Eyes: Pupils: Pupils are equal, round, and reactive to light. Cardiovascular: Rate and Rhythm: Normal rate and regular rhythm. Heart sounds: No murmur heard. Pulmonary: Breath sounds: Normal breath sounds. No wheezing. Abdominal: General: Bowel sounds are normal. Palpations: Abdomen is soft. Tenderness: There is no abdominal tenderness. Musculoskeletal: General: No tenderness. Normal range of motion. Cervical back: Normal range of motion. No tenderness. Skin: General: Skin is warm. Neurological: General: No focal deficit present. Mental Status: She is alert and oriented to person, place, and time. Psychiatric: Mood and Affect: Mood normal. Office Visit on 08/29/2024 Component Date Value Ref Range Status Rapid COVID Ag 08/29/2024 Positive Final QC Media Lot # 08/29/2024 [id number] Final Lot# Expiration Date 08/29/2024 [id number] Final Influenza A 08/29/2024 Negative Negative, Indeterminate Final Influenza B 08/29/2024 Negative Negative, Indeterminate Final Rapid Strep A Screen 08/29/2024 Negative Negative, None Detected Final ASSESSMENT/PLAN Problem List Items Addressed This Visit COVID-19 Rx Paxlovid x 5 days, [place] interactions module checked, no significant interactions found. Isolation until 09/01 and he will be out of work until then. Can be out of isolation, wearing a mask from 09/02 until 09/06/24, if sxs are resolved without other meds for at least 24h. Counseled to let close contacts within the past week, know about dx so they can be tested if needed. Rest (sleep at least 8 hours a night). Wash hands frequently Hydrate with plenty of water. Use saline nose drops Take Acetaminophen or Ibuprofen as Prn fever or discomfort Gargle with salt water and use throat sprays/lozenges prn Use heated, humidified air or take hot showers. If you have a fever, stay home and away from others (self isolation) until fever-free for 72 hours (temperature should be less than 100??F without medication). Viral upper respiratory tract infection - Primary Has covid 19 Relevant Orders POCT Rapid Covid-19 BinaxNOW (Completed) POCT Rapid Influenza A KOEHLER ID NOW (Completed) POCT Rapid Influenza B KOEHLER ID NOW (Completed) POCT Rapid Strep A KOEHLER ID NOW (Completed) Follow Up: Current Outpatient Medications on File Prior to Visit Medication Sig Dispense Refill acetaminophen (Tylenol) 500 MG tablet Take 2 [...] 120 each 0 Blood Glucose Monitoring Suppl (FreeStyle Lite) w/Device kit 1 each 4 times daily. 1 kit 0 Blood Pressure kit 1 each 2 times daily. 1 kit 0 Diclofenac Sodium 1 % gel To apply to the affected area 3 times a day 100 g 0 FREESTYLE LITE test strip Use as instructed [...] BY MOUTH EVERY DAY 90 tablet 0 meloxicam (Mobic) 7.5 MG tablet Take 1 tablet (7.5 mg) by mouth Once per day. 60 tablet 11 omeprazole (PriLOSEC) [address] capsule Take [...] to 10 days. 30 tablet 0 [DISCONTINUED] fluticasone (Flonase Allergy Relief) 50 MCG/ACT nasal spray Administer 1 spray into each nostril Once per day. Shake gently. Before first use, prime pump. After use, clean tip and replace cap. 16 g 12 No current facility-administered medications on file prior to visit. documented in this encounter Miscellaneous Notes * Assessment & Plan Note - Natacha Mendieta MD - 08/29/2024 4:34 PM EST Associated Problem(s): Viral upper respiratory tract infection Has covid 19 * Assessment & Plan Note - Natacha Mendieta MD - 08/29/2024 4:34 PM EST Associated Problem(s): COVID-19 Rx Paxlovid x 5 days, [place] interactions module checked, no significant interactions found. Isolation until 09/01 and he will be out of work until then. Can be out of isolation, wearing a mask from 09/02 until 09/06/24, if sxs are resolved without other meds for at least 24h. Counseled to let close contacts within the past week, know about dx so they can be tested if needed. Rest (sleep at least 8 hours a night). Wash hands frequently Hydrate with plenty of water. Use saline nose drops Take Acetaminophen or Ibuprofen as Prn fever or discomfort Gargle with salt water and use throat sprays/lozenges prn Use heated, humidified air or take hot showers. If you have a fever, stay home and away from others (self isolation) until fever-free for 72 hours (temperature should be less than 100??F without medication). documented in this encounter Plan of Treatment Upcoming Encounters Date Type Department Care Team (Late st Contact Info) Description 10/03/2024 3:30 PM EST Clinical Support [facility] [address] [place] [phone] documented as of this encounter Procedures Procedure Name Priority Date/Time Associated Diagnosis Comments POCT INFLUENZA B (ID NOW RAPID MOLECULAR) Routine 08/29/2024 4:21 PM EST Viral upper respiratory tract infection POCT INFLUENZA A (ID NOW RAPID MOLECULAR) Routine 08/29/2024 4:21 PM EST Viral upper respiratory tract infection POC KOEHLER ID NOW STREP A Routine 08/29/2024 4:21 PM EST Viral upper respiratory tract infection POCT RAPID COVID ANTIGEN Routine 08/29/2024 4:21 PM EST Viral upper respiratory tract infection documented in this encounter Results * POCT Rapid Strep A KOEHLER ID NOW (08/29/2024 4:21 PM EST) [facility] Rapid Strep A Screen Negative Negative, None Detected Swab 08/29/2024 4:21 PM EST us Natacha Mendieta MD POINT OF CARE TEST ENTER /EDIT ORDERABLES Final Result * POCT Rapid Influenza B KOEHLER ID NOW (08/29/2024 4:21 PM EST) [facility] Influenza B Negative Negative, Indeterminate [facility] Swab 08/29/2024 4:21 PM EST us Natacha Mendieta MD POINT OF CARE TEST ENTER /EDIT ORDERABLES Final Result Performing Organization Address City/[facility]/ZIP Co de Phone Number [facility] [address] [place] [phone] * POCT Rapid Influenza A KOEHLER ID NOW (08/29/2024 4:21 PM EST) [facility] Influenza A Negative Negative, Indeterminate [facility] Swab 08/29/2024 4:21 PM EST us Natacha Mendieta MD POINT OF CARE TEST ENTER /EDIT ORDERABLES Final Result Performing Organization Address [facility] Co de Phone Number [facility] [address] [place] [phone] * (ABNORMAL) POCT Rapid Covid-19 BinaxNOW (08/29/2024 4:21 PM EST) [facility] Rapid COVID Ag Positive [facility] QC Media Lot # [id number] [facility] Lot# Expiration Date [id number] [facility] Swab 08/29/2024 4:21 PM EST Natacha Mendieta MD POINT OF CARE TEST ENTER /EDIT ORDERABLES Final Result Performing Organization Address [facility] Co de Phone Number [facility] [address] [place] [phone] documented in this encounter Visit Diagnoses Diagnosis Viral upper respiratory tract infection- Primary Acute upper respiratory infections of unspecified site COVID-19 documented in this encounter Additional Health Concerns Assessment Noted Time PHQ-9 Depression Total Score: 6 05/02/20 24 9:38 AM EDT documented as of this encounter Care Teams Capacity Planning Analyst Relationship Specialty Start Date End Date Sherly Ballard MD [address] [place] [phone] PCP - General Internal Medicine 05/02/24 documented as of this encounter
--- OUTSIDE RECORDS SUMMARY | 2024-09-26 11:22 | XMS_ITS | Clinical Summary ---
Author Organization [employer] Address [address] [facility] 7[address] [place] [address] Care Team Providers Care Pipe Line Repairer Name Role Phone Sherly Ballard MD Primary Care Pro vider Allergies No known active allergies Medications Blood Pressure kit 1 each 2 times daily. 1 kit 024 2024 Active Lancets Ultra Thin 30G misc 1 each 4 times daily. 120 each 1 024 Active Alcohol Swabs (Alcohol Prep) pads 1 each 4 times daily. 120 each Active FREESTYLE LITE test strip Use as instructed 100 each 12 Active Blood Glucose Monitoring Suppl (FreeStyle Lite) w/Device kit 1 each 4 times daily. 1 kit Active lidocaine (Lidoderm) 5 % patch Apply 1 patch topically Once per day. Remove & discard patch within 12 hours or as directed by . 30 patch 2 024 2024 Active albuterol 108 (90 Base) MCG/ACT inhaler Inhale 2 puffs every 4 (four) hours if needed for wheezing or shortness of breath. 18 g 1 024 2024 Active Spacer/Aero-Holding Chambers (OptiChamber Lorena) misc 1 each every 4 (four) hours if needed (asthma). 1 each Active losartan (Cozaar) 25 MG tablet TAKE 1 TABLET BY MOUTH EVERY DAY 90 tablet Active acetaminophen (Tylenol Extra Strength) 500 MG tablet Take 1 tablet (500 mg) by mouth every 6 (six) hours if needed for mild pain. 120 tablet 025 2024 Active fluticasone (Flonase) 50 MCG/ACT nasal spray Administer 1 spray into each nostril Once per day. 16 g 2 025 2024 Active meloxicam (Mobic) 7.5 MG tablet 1-2 tab po daily prn pain 60 tablet Active Polyvinyl Alcohol-Povidone 5-6 MG/ML solution Administer 2 drops into affected eye(s) every 4 (four) hours if needed (dry/itchy eye). 15 mL 3 Active Ketotifen Fumarate 0.035 % solution Administer 1 drop into affected eye(s) 2 times daily for 10 days. 10 mL 025 2024 Active tiZANidine (Zanaflex) 2 MG tablet Take 1 tablet (2 mg) by mouth every 8 (eight) hours if needed for muscle spasms. 30 tablet 1 Active acetaminophen (Tylenol) 500 MG tablet Take 2 tablets (1,000 mg) by mouth every 8 (eight) hours if needed for moderate pain or fever. 30 tablet 1 025 Active omeprazole (PriLOSEC) [address] capsule Take 1 capsule (20 mg) by mouth before breakfast and before evening meal for 14 days. Do not crush or chew. 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 Do not crush or chew. 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 30 tablet 024 2024 Discontinued( Reorder (will not trigger notification to Pharmacy)) fluticasone (Flonase Allergy Relief) 50 MCG/ACT nasal spray Administer 1 spray into each nostril Once per day. Shake gently. Before first use, prime pump. After use, clean tip and replace cap. 16 g 12 024 2024 Discontinued( Duplicate order (will not trigger notification to Pharmacy)) meloxicam (Mobic) 7.5 MG tablet Take 1 tablet (7.5 mg) by mouth Once per day. 60 tablet 11 024 2024 Discontinued( Reorder (will not trigger notification to Pharmacy)) acetaminophen (Tylenol) 500 MG tablet Take 2 tablets (1,000 mg) by mouth every 8 (eight) hours if needed for moderate pain or fever. 30 tablet 1 024 2024 Discontinued( Reorder (will not trigger notification to Pharmacy)) Nirmatrelvir&Ritonavi r 300/100 (Paxlovid, 300/100,) 20 x 150 MG & 10 x 100MG tablet therapy pack Take 3 tablets by mouth 2 times daily for 5 days. 30 each 025 2024 ibuprofen 600 MG tabletIndications:Vir al ADENIKE Take 1 tablet (600 mg) by mouth every 8 (eight) hours if needed for mild pain for up to 7 days. HOLD MELOXICAM WHEN TAKING THIS MEDICATION (PITCAIRN ISLANDER) 20 tablet 2024 Discontinued( Ineffective) erythromycin (Romycin) 5 MG/GM ophthalmic ointmentIndications:A cute conjunctivitis of both eyes, unspecified acute conjunctivitis type Apply to affected eye(s) 3 times daily for 5 days. Apply Amount per Dose: 0.25 inch (~0.5 cm) per dose. 3.5 g 025 2024 Active Problems Problem Noted Date Diagnosed Date Allergic conjunctivitis of both eyes 09/24/2024 Assessment & Plan (09/24/2024 4:31 PM EST): He has mostly dry eyes, advised to use natural tears as needed He will use ketotifen eyedrops twice daily to decrease itchiness and swelling of eyelids. Right hip pain 09/24/2024 Assessment & Plan (09/24/2024 4:31 PM EST): Patient seems to have right hip bursitis, advised to reschedule appointment with PT and he could bring FMLA documents to allow him to go to PT sessions. Restart meloxicam daily x 1 week then as needed COVID-19 08/29/2024 Assessment & Plan (08/29/2024 4:34 PM EST): Rx Paxlovid x 5 days, Justin interactions module checked, no significant interactions found. [...] without medication). Viral upper respiratory tract infection 06/12/20 24 Assessment & Plan (08/29/2024 4:34 PM EST): Has covid 19 Assessment & Plan (06/12/2024 3:57 PM EDT): COVID, Flu and Strep negative. -No evidence of respiratory distress. Symptoms mild. -No evidence of dehydration. -Supportive care advised. -Isolation recommendations discussed. -ER precautions discussed. -Seek medical attention for worsening symptoms. HTN (hypertension) 05/02/2024 Assessment & Plan (09/24/2024 4:30 PM EST): Uncontrolled today most likely related to right leg pain. Continue losartan and check BP at home, follow-up with PCP as scheduled or earlier if BP continues to be above 145/90. Health care maintenance 05/02/2024 Obesity 05/02/2024 Type 2 diabetes mellitus wit hout complication, without long-term current use of insulin 05/02/2024 Tobacco use 05/02/2024 H. 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 09/24/2024 4:00 PM EST Office Visit [facility] [address] [place] [phone] Natacha Mendieta MD Allergic conjunctivitis of both eyes (Primary Dx); Right hip pain; Primary hypertension 09/20/2024 11:40 AM EST [facility] [address] [phone] Rashid Silva MD Acute conjunctivitis of both eyes, unspecified acute conjunctivitis type (Primary Dx); Viral URI 09/20/2024 Telephone [facility] [address] [place] [phone] Sherly Ballard MD Nurse Triage 08/29/2024 4:00 PM EST Office [facility] [address] [phone] Natacha Mendieta MD Viral upper respiratory tract infection (Primary Dx); COVID-19 08/28/[address] [phone] Sherly Ballard MD Nurse Triage 07/29/[address] [place] [address] Sherly Ballard MD 07/04/2024 Telephone [facility] [address] [place] [address] Sherly Ballard MD No Show from Last 3 Months Family History Medical History Relation Name Comments DM2,CAD Father Throat cancer Maternal Grandmother HTN Mother unspecified cancer Mother's Brother Relation Name Status Comments Father Maternal Grandmother Mother Mother's Brother Social History Tobacco Use Types Packs/Day Years [...] Orientation Straight 01/10/2024 1: 01 PM EDT Last Filed Vital Signs Vital Sign Reading [...] oz) 09/26/2024 8:48 A M EST Height 162.6 cm (5' 4 ) 09/24/2024 3:47 PM EST Body Mass Index 31.65 09/24/2024 3:47 PM EST Plan of Treatment Upcoming Encounters Date Type Department Care Team (Late st Contact Info) Description 10/03/2024 3:30 PM EST Clinical Support [facility] [address] [place] [address] [phone] Health Maintenance Due Date Last Done Comments CT Colonography 1973 Colonoscopy 1973 Colorectal Cancer Screening 1973 FIT DNA/Cologuard 1973 FIT 1973 FOBT 1973 HIV Screening 1973 Lipid Panel 1973 Sigmoidoscopy 1973 Diabetes: Foot Exam 1983 Alcohol/Substance Use Screening 1985 Family Planning (PISQ) 1988 Hepatitis C Screening 1991 DTaP/Tdap/Td Vaccines (1 - Tdap) 1992 Diabetes: Urine Protein Screening 1992 Hepatitis B Vaccines (1 of 3 - 19+ 3-dose series) 1992 Pneumococcal Vaccine: 50+ Years (1 of 2 - PCV) 1992 Zoster Vaccines (1 of 2) 2023 COVID-19 Vaccine (1 - season) 2024 Influenza Vaccine (#1) 2024 Diabetes: Hemoglobin A1C 10/30/2024 024, 01/24/2024, 01/10/2024 SDOH Screening 04/25/2025 04/25/2024 Depression Screening 05/02/2025 05/02/2024, 05/02/20 24 Tobacco Screening 09/26/2025 09/26/2024 Eye Exam 05/03/2026 05/03/2024, 04/15, 05/03/2024, Additional history exists RSV Patients and Patients Aged 60 years or older (1 - 1-dose 75+ series) 2048 HIB Vaccines Aged Out No longer eligi ble based on patient's age to complete this topic HPV Vaccines Aged Out No longer eligi ble based on patient's age to complete this topic Hepatitis A Vaccines Aged Out No long er eligible based on patient's age to complete this topic IPV Vaccines Aged Out No longer eligi ble based on patient's age to complete this topic Meningococcal Vaccine Aged Out No pattie everett eligible based on patient's age to complete this topic RSV under 20 months Aged Out No longe r eligible based on patient's age to complete this topic Rotavirus Vaccines Aged Out No longer eligible based on patient's age to complete this topic Procedures Procedure Name Priority Date/Time Associated Diagnosis Comments XR HIP 2 OR 3 VIEWS RIGHT Routine 09/26/2024 9:48 AM EST Right hip pain POCT INFLUENZA B (ID NOW RAPID MOLECULAR) Routine 09/20/2024 11:53 AM EST Viral URI POCT INFLUENZA A (ID NOW RAPID MOLECULAR) Routine 09/20/2024 11:53 AM EST Viral URI POCT RAPID COVID ANTIGEN Routine 09/20/2024 11:53 AM EST Viral URI POC KOEHLER ID NOW STREP A Routine 08/29/2024 4:21 PM EST Viral upper respiratory tract infection POCT INFLUENZA B (ID NOW RAPID MOLECULAR) Routine 08/29/2024 4:21 PM EST Viral upper respiratory tract infection POCT INFLUENZA A (ID NOW RAPID MOLECULAR) Routine 08/29/2024 4:21 PM EST Viral upper respiratory tract infection POCT RAPID COVID ANTIGEN Routine 08/29/2024 4:21 PM EST Viral upper respiratory tract infection POCT GLYCOSYLATED HEMOGLOBIN (HGB A1C) Routine 05/02/2024 9:20 AM EDT Type 2 diabetes mellitus with hyperosmolarity without coma, without long-term current use of insulin ([facility]) from Last 3 Months or Most Recently Relevant to Health Maintenance Results * XR Hip 2 or 3 Views Right (09/26/2024 9:48 AM EST) Anatomical Region Laterality Modality Lower Extremities, Hip Right Radiograp hic Imaging 09/26/2024 9:48 AM EST Narrative 09/26/2024 10:40 AM EST ?[facility] ?[address] ?[place] [address] ?XRay Report ? Signed ? Patient: Rakan Gutierrez ?MR#: [id number] ?? [id number] ? : 1975 ?Acct:[id number] ? Age/Sex: 49 / M ?ADM Date: 09/26/24 ? Loc: HO.HHCX ? Attending Dr: Fernando Madrid MD ? Ordering Physician: FERNANDO MADRID MD ?? Date of Service: 09/26/24 ?? Procedure(s): XR hip RT min 2V ?? Accession Number(s): [id number] ? cc: FERNANDO MADRID MD ? EXAMINATION: [...] 10:37 AM EST RP ? Dictated By: ?Elena,Douglas S MD ? Signed By: ?<Electronically signed by Douglas S MD Elena in OV> ?09/26/24 1037 ? DD/ 0948 ? TD/TT: 09/26/24 1008 ? Track Broom Operator: MSM ? Procedure Note Donotfaustinointerpreter, Image - 09/26/2024 [facility] [address] [place] [address] XRay Report Signed Patient: Rakan GutierrezMR#: [id number] : 1975Acct:[id number] Age/Sex: 49 / MADM Date: 09/26/24 Loc: HO.HHCX Attending Dr: Fernando Madrid MD Ordering Physician: FERNANDO MADRID MD Date of Service: 09/26/24 Procedure(s): XR hip RT min 2V Accession Number(s): [id number] cc: FERNANDO MADRID MD EXAMINATION: XR HIP, [...] 09/26/24 1037 DD/ 0948 TD/TT: 09/26/24 1008 Track Broom Operator: MSM us Fernando Madrid MD IMG XR PROCEDURES Final Result * Influenza B (ID NOW Rapid Molecular) (09/20/2024 11:53 AM EST) Only the most recent of2 resultswithin the time period is included. Influenza B Negative Negative, Indeterminate [facility] Swab 09/20/2024 11:5 3 AM EST us Rashid Silva MD POINT OF CARE TEST ENTER/EDIT OR DERABLES Final Result Performing Organization Address [facility] Co de Phone Number [facility] [address] [place] [phone] * Influenza A (ID NOW Rapid Molecular) (09/20/2024 11:53 AM EST) Only the most recent of2 resultswithin the time period is included. Influenza A Negative Negative, Indeterminate [facility] Swab 09/20/2024 11:5 3 AM EST us Rashid Silva MD POINT OF CARE TEST ENTER/EDIT OR DERABLES Final Result Performing Organization Address [facility] Co de Phone Number [facility] [address] [place] [phone] * POCT Rapid COVID Ag (09/20/2024 11:53 AM EST) Only the most recent of2 resultswithin the time period is included. Pathologist [facility] Rapid COVID Ag Negative [facility] Swab 09/20/2024 11:5 3 AM EST us Rashid Silva MD POINT OF CARE TEST ENTER/EDIT OR DERABLES Final Result Performing Organization Address [facility] Co de Phone Number [facility] [address] [place] [phone] * POCT Rapid Strep A KOEHLER ID NOW (08/29/2024 4:21 PM EST) [facility] Rapid Strep A Screen Negative Negative, None Detected Swab 08/29/2024 4:21 PM EST us Natacha Mendieta MD POINT OF CARE TEST ENTER /EDIT ORDERABLES Final Result * POCT glycosylated hemoglobin (Hgb A1c) (05/02/2024 9:20 AM EDT) [facility] Hemoglobin A1C 6.0 4.0 - 6.0 % QC Media Lot # [id number] Lot# Expiration Date [id number] Blood Capillary blood specimen / Unknown 05/02/2024 9:20 AM EDT Sherly Napoles MD POINT OF CARE HERSON T ENTER/EDIT ORDERABLES Final Result from Last 3 Months or Most Recently Relevant to Health Maintenance [place] [address] [place] [address] C3 Care Teams Pipe Line Repairer Relationship Specialty Start Date End Date Sherly Ballard MD [address] [place] [address] [phone] PCP - General Internal Medicine 05/02/24
--- OUTSIDE RECORDS SUMMARY | 2024-09-26 11:22 | XMS_ITS | Encounter Summary ---
Author Organization [employer] Address [address] [facility] [address] [place] [address] Care Team Providers Care Bark Peeler Name Role Phone Sherly Ballard MD Primary Care Pro vider Reason for Visit * Reason Comments Cough Generalized Body Aches eye itchiness Redness, Eye Encounter Details Date Type Department Care Team (Latest Contact Info) Description 09/20/2024 11:40 AM EST Office Visit [facility] [address] [place] [address] [phone] Rashid Silva MD [address] [place] [phone] Acute conjunctivitis of both eyes, unspecified acute conjunctivitis type (Primary Dx); Viral URI Social History Tobacco Use Types Packs/Day Years [...] Sign Reading Time Taken Comments Blood Pressure 161/101 09/20/2024 11:39 AM EST Pulse 86 09/20/2024 11:39 AM EST Temperature 36.3 ??C (97.4 ??F) 09/20/2024 11:[address] Respiratory Rate 16 09/20/2024 11:39 AM EST Oxygen Saturation 97% 09/20/2024 11:39 AM EST Inhaled Oxygen Concentration - - Weight 83.6 kg (184 lb 3.2 oz) 09/20/2024 11:39 AM EST Height - - Body Mass Index 31.62 08/29/2024 3:56 PM EST documented in this encounter Progress Notes * Rashid Silva MD - 09/20/2024 11:40 AM EST Subjective History was provided by the patient. Rakan Pugh is a 49 y.o. male who presents for evaluation of symptoms of a URI. Symptoms include cough, myalgia, congestion, and bilateral pink eyes . No significant eye discharge. No eye pain or vision change. Onset of symptoms was 3 days ago, unchanged since that time. Associated negative symptoms include fever, chills, sore throat, nausea, vomiting, diarrhea, ear pain, and rash. Evaluation to date: none. Treatment to date: none Was diagnosed with COVID-19 ~3 weeks ago, but these symptoms have resolved prior to the current presentation. Objective Vitals: 09/20/24 1139 BP: (!) 161/101 BP Location: Left arm Patient Position: Sitting BP Cuff Size: Adult Pulse: 86 Resp: 16 Temp: 97.4 ??F (36.3 ??C) TempSrc: Temporal SpO2: 97% Weight: 184 lb 3.2 oz (83.6 kg) Physical Exam Vitals reviewed. Constitutional: General: He is not in acute distress. Appearance: Normal appearance. He is ill-appearing. He is not toxic-appearing or diaphoretic. HENT: Head: Normocephalic and atraumatic. Right Ear: Tympanic membrane, ear canal and external ear normal. Left Ear: Tympanic membrane, ear canal and external ear normal. Nose: Nose normal. No congestion or rhinorrhea. Mouth/Throat: Mouth: Mucous membranes are dry. Pharynx: Oropharynx is clear. Posterior oropharyngeal erythema present. No oropharyngeal exudate. Eyes: Extraocular Movements: Extraocular movements intact. Pupils: Pupils are equal, round, and reactive to light. Comments: Bilateral conjunctival injection; no eyelid edema/erythema Cardiovascular: Rate and Rhythm: Normal rate and regular rhythm. Heart sounds: Normal heart sounds. Pulmonary: Effort: Pulmonary effort is normal. Breath sounds: Normal breath sounds. Musculoskeletal: General: Normal range of motion. Cervical back: Normal range of motion and neck supple. Skin: General: Skin is warm and dry. Neurological: General: No focal deficit present. Mental Status: He is alert and oriented to person, place, and time. Psychiatric: Mood and Affect: Mood normal. Behavior: Behavior normal. Thought Content: Thought content normal. Judgment: Judgment normal. Office Visit on 09/20/2024 Component Date Value Ref Range Status Rapid COVID Ag 09/20/2024 Negative Final Influenza A 09/20/2024 Negative Negative, Indeterminate Final Influenza B 09/20/2024 Negative Negative, Indeterminate Final Rakan was seen today for cough, generalized body aches, eye itchiness and redness, eye. Diagnoses and all orders for this visit: Acute conjunctivitis of both eyes, unspecified acute conjunctivitis type (Primary) - erythromycin (Romycin) 5 MG/GM ophthalmic ointment; Apply to affected eye(s) 3 times daily for 5 days. Apply Amount per Dose: 0.25 inch (~0.5 cm) per dose. Viral URI - POCT Rapid COVID Ag - Influenza A (ID NOW Rapid Molecular) - Influenza B (ID NOW Rapid Molecular) - ibuprofen 600 MG tablet; Take 1 tablet (600 mg) by mouth every 8 (eight) hours if needed for mildpain for up to 7 days. HOLD MELOXICAM WHEN TAKING THIS MEDICATION (TURKS AND [place] ISLANDER) Patient with a clinical presentation of viral URI and bilateral conjunctivitis Rapid COVID-19 and Influenza A/B negative Normal pulmonary exam and no respiratory distress O2 sat reassuring Erythromycin ointment for bilateral conjunctivitis No clinical evidence of preseptal or septal cellulitis Warm compress also recommended Discussed supportive care with ample hydration, sleep position and rest OTC supportive medications reviewed Droplet precautions discussed Advised to contact the clinic if no improvement of symptoms Indications for UC/ER use reviewed Work note provided documented in this encounter Plan of Treatment Upcoming Encounters Date Type Department Care Team (Late st Contact Info) Description 10/03/2024 3:30 PM EST Clinical Support [address] [phone] documented as of this encounter Procedures Procedure Name Priority Date/Time Associated Diagnosis Comments POCT INFLUENZA B (ID NOW RAPID MOLECULAR) Routine 09/20/2024 11:53 AM EST Viral URI POCT INFLUENZA A (ID NOW RAPID MOLECULAR) Routine 09/20/2024 11:53 AM EST Viral URI POCT RAPID COVID ANTIGEN Routine 09/20/2024 11:53 AM EST Viral URI documented in this encounter Results * Influenza B (ID NOW Rapid Molecular) (09/20/2024 11:53 AM EST) Influenza B Negative Negative, Indeterminate [facility] Swab 09/20/2024 11:5 3 AM EST us Rashid Silva MD POINT OF CARE TEST ENTER/EDIT OR DERABLES Final Result Performing Organization Address [facility] Co de Phone Number [facility] [address] [place] [phone] * Influenza A (ID NOW Rapid Molecular) (09/20/2024 11:53 AM EST) Influenza A Negative Negative, Indeterminate [facility] Swab 09/20/2024 11:5 3 AM EST Rashid Silva MD POINT OF CARE TEST ENTER/EDIT OR DERABLES Final Result Performing Organization Address [facility] Co de Phone Number [facility] [address] [place] [phone] * POCT Rapid COVID Ag (09/20/2024 11:53 AM EST) Rapid COVID Ag Negative [facility] Swab 09/20/2024 11:5 3 AM EST us Rashid Silva MD POINT OF CARE TEST ENTER/EDIT OR DERABLES Final Result Performing Organization Address [facility] de Phone Number [facility] [address] [place] [phone] documented in this encounter Visit Diagnoses Diagnosis Acute conjunctivitis of both eyes, unspecified acute conjunctivitis type- Primary Viral URI Acute upper respiratory infections of unspecified site documented in this encounter Additional Health Concerns Assessment Noted Time PHQ-9 Depression Total Score: 6 05/02/20 24 9:38 AM EDT documented as of this encounter Care Teams Bark Peeler Relationship Specialty Start Date End Date Sherly Ballard MD [address] [place] [address] PCP - General Internal Medicine 05/02/24 documented as of this encounter
== END 2024-09-26 09:48 | disposition home or self-care (01) ==
LOC: HO.HHCX 09:47
PROVIDERS: Visit Provider Emergency Medicine
DX: M25.551 Pain in right hip (principal)
CPT/HCPCS: 73502

== ENCOUNTER → 2024-09-26 09:48 | Outpatient (BNV) | payer MEDICAID, SELFPAY | PROVIDERS: Visit Provider Radiology Diagnostic Radiology | DX: M25.551 Pain in right hip (principal) | CPT/HCPCS: 73502 ==

== ENCOUNTER 2024-12-04 19:27 | Emergency (ER) | payer MEDICAID, SELFPAY ==
--- NOTE | ~2024-12-04 | XR_ITS ---
CLINICAL HISTORY: chest pain 1 view chest x-ray Comparison: None Findings: Patient mildly rotated. Normal size heart. No consolidation, significant pleural effusion or pneumothorax. No acute fracture. IMPRESSION: 1. No acute findings. This document has been electronically signed by: Lupe Melvin MD on 12/04/2024 20:23:17
--- NOTE | 2024-12-04 19:33 | PC.NURSE ---
pt was checked in and then went to the bathroom, calling pt name and no answer.
--- NOTE | 2024-12-04 19:36 | ECG_ITS ---
Test Reason : chest pain Blood Pressure : */* mmHG Vent. Rate : 109 BPM Atrial Rate : 109 BPM P-R Int : 142 ms QRS Dur : 84 ms QT Int : 326 ms P-R-T Axes : 152 -24 -19 degrees QTcB Int : 439 ms Unusual P axis, possible ectopic atrial tachycardia Nonspecific T wave abnormality Abnormal ECG No previous ECGs available Referred By: Generic ED Physician Electronically Signed By: PRITESH CORNELL
[2024-12-04 19:52] VITALS: BP 148/89; PULSE 118; RESP 16; TEMP 37; O2SAT 97; BMI 36.7
[2024-12-04 19:54] LABS: MANUAL DIFF FLAG NO
[2024-12-04 19:56] LABS: Basophils Percent Auto 0.2 % (0-2); Eosinophils Percent Auto 0.4 % (0-4); Hematocrit 43.5 % (42.0-52.0); Hemoglobin 15.3 g/dl (14.0-18.0); Imm Gran Abs Auto 0.03 X10*3/uL (0.00-0.03); Imm Gran Pct Auto 0.3 % (0.0-0.4); Lymphocytes Absolute Auto 1.8 X10*3/uL (1.2-4.9); Lymphocytes Percent Auto 17.3 % (20-40); Mean Corpuscular HGB Conc 35.2 g/dl (31.0-36.0); Mean Corpuscular Hemoglobin 29.4 pg (27.0-33.0); Mean Corpuscular Volume 83.7 fL (80.0-98.0); Mean Platelet Volume 11.8 fL (9.4-12.4); Monocytes Absolute Auto 0.7 X10*3/uL (0.1-1.2); Monocytes Percent Auto 6.9 % (2-11); Neutrophils Absolute Auto 7.7 x10*3/uL (2.0-8.3); Neutrophils Percent Auto 74.9 % (45-73); Platelet Count 187 X10*3/uL (160-400); Red Cell Distribution Width 12.6 % (11.0-16.0); White Blood Count 10.3 X10*3/uL (4.8-10.8)
--- NOTE | 2024-12-04 19:58 | ED_ITS ---
HPI - Chest Pain General Chief Complaint: Chest Pain Stated Complaint: Chest pain/High blood pressure Time Seen by Provider: 12/05/24 00:01 Source: patient, RN notes reviewed, old records reviewed and machine operator assistant Mode of arrival: ambulatory Limitations: language barrier History of Present Illness ED Provider: Hardy HPI narrative: 49-year-old male past medical history significant for hypertension on losartan presents for evaluation of chest pain. Patient reports that he has had increased chest pain for the last few days. He reports his blood pressure has been as high as 175/101 at home Patient reports that he has been moving furniture and heavy abdomen is for the last couple of days. He has some right-sided neck pain that he feels is consistent with his blood pressure being elevated. He denies any history of coronary artery disease. Currently he was asymptomatic, denies any chest pain, shortness of breath. He reports that he was noncompliant with his losartan. He states that if he checks his blood pressure and it was not elevated he does not take his losartan. He did take it this morning at 10:00 a.m. Related Data Previous Rx's ?Medication ?Instructions ?Recorded clotrimazole 1 % topical cream 1 appl topical BID 2 weeks #15 01/09/24 grams Allergies Allergy/AdvReac Type Severity Reaction Status Date / Time diphenhydramine Allergy Palpitation Verified 12/04/24 19:58 [From Hardik] s Review of Systems 2 Constitutional: Constitutional: Denies body ache(s), Denies chills, Denies fever(s) and Denies headache(s) Eyes: Eyes: Denies blurry vision ENT: Denies vertigo, Denies dizziness and Denies headache(s) Cardiovascular: Cardiovascular: Reports chest pain, Reports chest pain at rest, Reports chest pain with activity and Denies dyspnea Respiratory: Respiratory: Denies cough and Denies dyspnea Gastrointestinal: Gastrointestinal: Denies tenesmus, Denies nausea and Denies vomiting Musculoskeletal: Musculoskeletal: Denies back pain Integumentary/Breasts: Skin/Breast: Denies rash Neurologic: Denies vertigo, Denies dizziness and Denies headache(s) [facility] Social History Social History (System 01/12/24 @ 16:01 by Chiqui Staley) Smoked in Last 30 Days: No Use of substances other than those prescribed or required for medical reasons: No Advance Directives: No Advance Directives Information Provided: Yes Do you have a plan to hurt others: No Plan Physical Exam 2 Vital Signs: Vital Signs: Last Vital Signs Temp 98.2 F 12/05/24 00:28 Pulse 91 12/05/24 00:28 Resp 18 12/05/24 00:28 BP 148/85 H 12/05/24 00:28 Pulse Ox 97 12/05/24 00:28 O2 Del Method Room Air 12/05/24 00:28 BMI result Body Mass Index 36.7 Const: General: healthy appearing, comfortable, no acute distress, alert and awake Nutritional Appearance: well nourished Orientation/consciousness: p atient oriented x3 HEENT: Head: Yes normocephalic and Yes atraumatic Eyes: Eyelids: Yes eyelids normal Conjunctivae: conjunctivae normal S clerae: sclerae normal Corneas: corneas normal Pupils: Equal, round and reactive pupils present EOM: EOMs intact bilaterally Neck: Neck: Yes full ROM Resp: Effort & Inspection: normal respiratory effort, able to speak in complete sentences and not labored Cardio: Rate: regular rate Rhythm: regular rhythm GI: Inspection: No distended Palpation (GI): Soft to palpation, not firm, nontender, no guarding and not rigid Skin: General skin exam: elasticity normal Neuro: General: patient oriented x3 Cranial nerves: Yes Equal, round and reactive pupils present and Yes Bilaterally intact EOM present Cognition (Neuro): normal cognition Course Course Course Narrative: RME: 49 yold male presents to the ED for chest paina and elevated blood pressure. Patient states chest pain is improving. patient denies any leg swelling, slurred speech, facial droop, paralysis of extremities loss of vision, nausea, vomiting, or any other concerning symptoms. EKG labs chest x-ray ordered. Medical Decision Making Medical Decision Making MDM Narrative: 49-year-old male presents for evaluation of intermittent chest pain, elevated blood pressure and dizziness. His physical exam is reassuring. Although he is currently asymptomatic. Chest x-ray is unremarkable. EKG shows a sinus rhythm without ectopy or acute ischemia. His troponin is negative despite several days of intermittent chest pain. He was out for ACS. The patient's blood pressure was elevated mildly to 148/89 and stayed pretty consistent to 148/85 after a few hours. Given that he was asymptomatic, had a negative work out, rules out for ACS the patient is stable for discharge. I discussed at length the importance of being compliant with his medications. He understand these risks. The patient was initially tachycardic which could be related to anxiety, without intervention his heart rate improved to 91, he was not hypoxic, tachypneic. Less likely PE. He was no leg swelling, no risk factors for PE. Differential Diagnosis Differential Diagnoses: The differential diagnosis associated with the presentation includes Chest pain ACS GERD Costochondritis Hypertension Admission/Observation Consideration of admission/observation: Escalation of care including admission/observation considered Lab Data MDM Lab Attestation statement: I reviewed the patient's lab results. No leukocytosis or anemia. Normal platelet count. No electrolyte abnormalities warranting intervention. Troponin negative 12/04/24 19:48 12/04/24 19:48 Labs: Lab Results 12/04/24 12/04/24 Range/Units 19:48 20:15 WBC 10.3 (4.8-10.8) X10*3/uL RBC 5.20 (4.60-5.80) X10*6/uL Hgb 15.3 (14.0-18.0) g/dl Hct 43.5 (42.0-52.0) % MCV 83.7 (80.0-98.0) fL MCH 29.4 (27.0-33.0) pg MCHC 35.2 (31.0-36.0) g/dl RDW 12.6 (11.0-16.0) % Plt Count 187 (160-400) X10*3/uL MPV 11.8 (9.4-12.4) fL Immature Gran % (Auto) 0.3 (0.0-0.4) % Neut % (Auto) 74.9 H (45-73) % Lymph % (Auto) 17.3 L (20-40) % Sherman % (Auto) 6.9 (2-11) % Eos % (Auto) 0.4 (0-4) % Baso % (Auto) 0.2 (0-2) % Lymph # (Auto) 1.8 (1.2-4.9) X10*3/uL Sherman # (Auto) 0.7 (0.1-1.2) X10*3/uL Eos # (Auto) 0.0 (0.0-0.4) X10*3/uL Baso # (Auto) 0.0 (0.0-0.2) X10*3/uL Abs Immat Gran (auto) 0.03 (0.00-0.03) X10*3/uL Absolute Neuts (auto) 7.7 (2.0-8.3) x10*3/uL Absolute Nucleated RBC 0.000 (0.0-0.012) X10*3/uL Nucleated RBC % (auto) 0.0 (0.0-0.2) /100WBC Sodium 140 (135-145) mmol/L Potassium 3.7 (3.3-5.1) mmol/L Chloride 102 (96-108) mmol/L Carbon Dioxide 25 (22-29) mmol/L Anion Gap 17 (12-20) BUN 16 (9-16) mg/dL Creatinine 1.07 (0.5-1.4) mg/dL Estim Creat Clear Calc 74.0 Estimated GFR > 60 Random Glucose 156 H (60-115) mg/dL Calcium 9.1 (8.4-10.2) mg/dL Troponin I High Sens < 2.7 (<3.5-35.0) ng/L Urine Color Yellow Urine Appearance Clear Urine pH 5.5 (5.0-9.0) Ur Specific [place] 1.020 (1.005-1.025) Urine Protein Negative (Neg-Trace) mg/dL Urine Glucose (UA) >=1000 H (Negative) mg/dL Urine Ketones Negative (Negative) mg/dL Urine Blood Negative (Negative) Urine Nitrite Negative (Negative) Ur Leukocyte Esterase Negative (Negative) Urine RBC 0-2 (0-2) /HPF Urine WBC 0-5 (0-5) /HPF Ur Squamous Epith Cells 0-2 (0-2) /HPF Urine Bacteria None Seen (None Seen) Hyaline Casts 3-5 (0-2) /LPF Independent Interpretation I performed an independent interpretation of an: EKG (Sinus tachycardia with a rate of 109 beats per minute. No ischemic changes) Radiology Impression Discussion of test interpretation with radiology: I have reviewed the radiologist's reading. Radiologist Impression: Findings: Patient mildly rotated. Normal size heart. No consolidation, significant pleural effusion or pneumothorax. No acute fracture. IMPRESSION: 1. No acute findings. This document has been electronically signed by: Lupe Melvin MD on 12/04/2024 20:23:17 Discharge Plan Discharge Clinical Impression: Chest pain, Nonadherence to medication Patient Disposition: Home, Self-Care Instructions: Chest Pain (ED) Additional Instructions: Your workup in the ER today was reassuring. This includes your lab work and your EKG as well as your chest x-ray It was very important that you take your blood pressure medication every single day Follow-up with your primary doctor, return for new or worsening symptoms Prescriptions: No Action clotrimazole 1 % cream 1 appl topical BID 14 Days Qty: 15 0RF Interventions: ED Discharge Assessment Last Done: 12/05/24 00:28 Discharge Date/Time: 12/05/24 00:30 Print Language: Argentine
[2024-12-04 20:13] LABS: Anion Gap 17 (12-20); Blood Urea Nitrogen 16 mg/dL (9-16); Calcium 9.1 mg/dL (8.4-10.2); Carbon Dioxide 25 mmol/L (22-29); Chloride 102 mmol/L (96-108); Estimated Glomerular Filt Rate > 60; Glucose Random 156 mg/dL (60-115); Potassium 3.7 mmol/L (3.3-5.1); Sodium 140 mmol/L (135-145)
[2024-12-04 20:24] LABS: Troponin-I High Sensitivity < 2.7 ng/L (<3.5-35.0)
[2024-12-04 20:34] LABS: Appearance Urine Clear; Color Urine Yellow; Glucose Urine UA >=1000 mg/dL (Negative); Leukocyte Esterase Urine Negative (Negative); Nitrite Urine Negative (Negative); PH 5.5 (5.0-9.0); UMIC TRIGGER UACC YES; Urine Blood Negative (Negative); Urine Ketones Negative (Negative); Urine Protein Negative (Neg-Trace)
[2024-12-04 20:48] LABS: Bacteria Urine None Seen (None Seen); RBC Urine 0-2 /HPF (0-2); Squamous Epithelial Cell Urine 0-2 /HPF (0-2); WBC Urine 0-5 /HPF (0-5)
[2024-12-04 23:41] VITALS: BP 148/85; PULSE 91; RESP 18; TEMP 36.8; O2SAT 97
--- NOTE | 2024-12-04 23:45 | PC.NURSE ---
cushion cover inspector at bedside. pt a&ox4, respirations even and unlabored, vss. pt reports high blood pressure and fast heart rate, bluury vision and chest pain. pt reports he does not take his medications every day because his pressure is not always elevated. pt informed that he does need to take these medications every day. pt awaiting provider.
[2024-12-05 00:28] VITALS: BP 148/85; PULSE 91; RESP 18; TEMP 36.8; O2SAT 97
== END 2024-12-05 00:30 | disposition home or self-care (01) ==
PROVIDERS: Emergency Provider Emergency Medicine; PCP Student in an Organized Health Care Education/Training Program
DX: R07.89 Other chest pain (principal); I10 Essential (primary) hypertension; Z91.148 Patient's other noncompliance with medication regimen for other reason; Z79.899 Other long term (current) drug therapy
CPT/HCPCS: 36415; 71045; 80048; 81001; 84484; 85025; 93005; 99283; 99285

== ENCOUNTER → 2024-12-04 19:36 | Outpatient (BNV) | payer MEDICAID, SELFPAY | PROVIDERS: PCP Student in an Organized Health Care Education/Training Program; Visit Provider Specialist | DX: R07.9 Chest pain, unspecified (principal) | CPT/HCPCS: 71045 ==

== ENCOUNTER → 2024-12-04 19:36 | Outpatient (BNV) | payer MEDICAID, SELFPAY | PROVIDERS: Emergency Provider Emergency Medicine; PCP Student in an Organized Health Care Education/Training Program; Visit Provider Internal Medicine | DX: R07.9 Chest pain, unspecified (principal); R94.31 Abnormal electrocardiogram [ECG] [EKG] | CPT/HCPCS: 93010 ==

== ENCOUNTER 2025-03-08 16:11 | Outpatient (REF) | payer MEDICAID, SELFPAY ==
--- NOTE | ~2025-03-08 | CT_ITS ---
CLINICAL HISTORY: pt with chronic left pulsatile tinnitus,hearinbg loss,vertigo CT TEMPORAL BONE WITHOUT CONTRAST Comparison: None provided Findings: Bilateral external auditory canals and tympanic membranes are unremarkable. Middle ear ossicles are intact. Cochlea and semicircular canals appear normal. Seventh nerve courses are unremarkable. Temporomandibular joints are intact. No sinus or mastoid fluid. Nonspecific mild mucosal thickening in the right maxillary sinus. Visualized orbits: No acute abnormalities. No foreign bodies. Bilateral symmetrical minimal fluid stranding in the inner auditory canals is nonspecific. IMPRESSION: Unremarkable temporal bone CT. No convincing evidence for otosclerosis. This document has been electronically signed by: Samantha Yip DO on 03/12/2025 14:20:52
--- OUTSIDE RECORDS SUMMARY | 2025-03-08 16:13 | XMS_ITS | Encounter Summary ---
Author Organization [employer] Address [address] [facility] [address] [place] [address] Care Team Providers Care Branch Library Clerk Name Role Phone Sherly Ballard MD Primary Care Pro vider Reason for Visit * Reason Comments Med Refill Encounter Details Date Type Department Care Team (Late Contact Info) Description 04/10/2024 Refill [facility] [address] [place] [address] Bradly Vann MD [address] [place] [address] Degenerative arthritis of metacarpophalangeal joint of right [...] Care Team (Late st Contact Info) Description 05/08/2025 3:30 PM EDT Office Visit [facility] [address] [place] [address] Jackie Alonzo OD [address] [place] [address] documented as of this encounter Visit Diagnoses Diagnosis 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
== END 2025-03-08 16:12 | disposition home or self-care (01) ==
LOC: HO.CT 16:11
PROVIDERS: PCP Student in an Organized Health Care Education/Training Program; Visit Provider Student in an Organized Health Care Education/Training Program
DX: H93.A2 Pulsatile tinnitus, left ear (principal)
CPT/HCPCS: 70481

== ENCOUNTER → 2025-03-08 16:12 | Outpatient (BNV) | payer MEDICAID, SELFPAY | PROVIDERS: PCP Student in an Organized Health Care Education/Training Program; Visit Provider Radiology Diagnostic Radiology | DX: R42 Dizziness and giddiness (principal); H93.A2 Pulsatile tinnitus, left ear; H91.92 Unspecified hearing loss, left ear | CPT/HCPCS: 70481 ==

== ENCOUNTER 2025-07-31 02:38 | Emergency (ER) | payer MEDICAID, SELFPAY ==
--- NOTE | ~2025-07-31 | XR_ITS ---
CLINICAL HISTORY: chest pain 2 view chest x-ray Comparison: CR - XR CHEST 1V - 12/04/24 20:06 EDT Findings: No consolidation or effusion. Normal size heart. No acute fracture. IMPRESSION: 1. No acute findings. This document has been electronically signed by: Deysi Dent MD on 07/31/2025 04:31:19
--- NOTE | 2025-07-31 02:39 | ECG_ITS ---
Test Reason : CHEST PAIN Blood Pressure : */* mmHG Vent. Rate : 90 BPM Atrial Rate : 90 BPM P-R Int : 148 ms QRS Dur : 88 ms QT Int : 370 ms P-R-T Axes : 57 32 40 degrees QTcB Int : 452 ms Normal sinus rhythm Normal ECG When compared with ECG of 04-Dec-2024 19:39, Sinus rhythm has replaced Ectopic atrial rhythm Questionable change in QRS axis Nonspecific T wave abnormality, improved in Inferior leads Referred By: Generic ED Physician Electronically Signed By: Jey Burger
[2025-07-31 02:57] VITALS: BP 142/86; PULSE 88; RESP 18; TEMP 36.2; O2SAT 97; BMI 29.2
--- OUTSIDE RECORDS SUMMARY | 2025-07-31 03:05 | XMS_ITS | Clinical Summary ---
Author Organization [employer] Address [address] [facility] [address] [place] [address] Care Team Providers Care Manufacturing Engineering Technologist Name Role Phone Sherly Ballard MD Primary Care Pro vider Allergies Active Allergy Reactions Criticality Noted Date Comments Diphenhydramine Itching 10/22/2024 Medications Lancets Ultra Thin 30G misc 1 each 4 times daily. 120 each 1 2023 Active Alcohol Swabs (Alcohol Prep) pads 1 each 4 times daily. 120 each 2023 Active FREESTYLE LITE test strip Use as instructed 100 each 12 2023 Active Blood Glucose Monitoring Suppl (FreeStyle Lite) w/Device kit 1 each 4 times daily. 1 kit 2023 Active albuterol 108 (90 Base) MCG/ACT inhaler Inhale 2 puffs every 4 (four) hours if needed for wheezing or shortness of breath. 18 g 1 2023 Active Spacer/Aero-Holding Chambers (OptiChamber [place]) misc 1 each every 4 (four) hours if needed (asthma). 1 each 2023 Active meloxicam (Mobic) 7.5 MG tablet 1-2 tab po daily prn pain 60 tablet 2024 Active Polyvinyl Alcohol-Povidone 5-6 MG/ML solution Administer 2 drops into affected eye(s) every 4 (four) hours if needed (dry/itchy eye). 15 mL 3 2024 Active meclizine (Antivert) 12.5 MG tablet Take 1 tablet (12.5 mg) by mouth if needed in the morning, at noon, and at bedtime for dizziness. 30 tablet 2 12/26 Active Diclofenac Sodium 1 % gelIndications:Degene rative arthritis of metacarpophalangeal joint of right thumb TO APPLY TO THE AFFECTED AREA 3 TIMES A DAY 100 g 1 2024 Active omeprazole (PriLOSEC) [address] capsule TAKE 1 CAPSULE BY MOUTH BEFORE BREAKFAST FOR 14 DAYS. DO NOT CRUSH OR CHEW. 90 capsule 2024 Active losartan-hydroCHLOROt hiazide (Hyzaar) 50-12.5 MG tablet Take 1 tablet by mouth Once per day. 90 tablet 2024 Active empagliflozin (Jardiance) 10 MG Take 1 tablet (10 mg) by mouth Once per day. 90 tablet 06/07 Active albuterol (2.5 MG/3ML) 0.083% nebulizer solutionIndications:A cute cough Take 3 mL (2.5 mg) by nebulization every 6 (six) hours if needed for wheezing or shortness of breath. 75 mL 1 07/15 Active acetaminophen (Tylenol) 500 MG tabletIndications:Inf luenza A Take 2 tablets (1,000 mg) by mouth every 8 (eight) hours if needed for moderate pain or fever. 30 tablet 1 2024 Active sodium chloride ([place] Nasal [place]) 0.65 % nasal sprayIndications:Infl uenza A Administer 1 spray into each nostril every 2 (two) hours if needed for congestion. 30 mL 12 07/15 Active benzocaine-menthol (Sore Throat Lozenges) 6-10 MG lozengeIndications:In fluenza A Dissolve 1 lozenge in the mouth every 2 (two) hours if needed for sore throat. 100 lozenge 07/15 Active budesonide-formoterol (Symbicort) 80-4.5 MCG/ACT inhalerIndications:In fluenza A,Wheezing Inhale 2 puffs every 4 (four) hours if needed (wheezing and shortness of breath). Rinse mouth with water after use to reduce aftertaste and incidence of candidiasis. Do not swallow. 1 each 08/14 Active acetaminophen (Tylenol) 500 MG tablet Take 2 tablets (1,000 mg) by mouth every 8 (eight) hours if needed for moderate pain or fever. 30 tablet 1 07/15 Discontinued( Reorder (will not trigger notification to Pharmacy)) Hospital, Clinic, or Other Facility Administered Medication Ordered Dose Route Frequency Start Date End Date Status albuterol (2.5 MG/3ML) 0.083% nebulizer solution 2.5 mgIndications:Wheezi ng 2.5 mg NEBULIZATION Once 07/15/2025 07/15/2025 Ended Active Problems Problem Noted Date Diagnosed Date Lumbalgia 12/27/2024 Allergic conjunctivitis of both eyes 09/24/2024 Assessment [...] PM EST): Rx Paxlovid x 5 days, [place] interactions module checked, no significant interactions found. [...] 72 hours (temperature should be less than 100 F without medication). HTN (hypertension) 05/02/2024 Assessment & Plan (09/24/2024 [...] Encounters Date Type Department Care Team Description 07/15/2025 3:00 PM EST Office Visit [facility] [address] [place] [address] Veronica Patel NP Acute cough (Primary Dx); Influenza A; Wheezing 07/15/2025 Travel 06/07/2025 Orders Only [facility] [address] [place] [address] Sherly Ballard MD Health care maintenance (Primary Dx) 06/07/2025 Telephone [facility] [address] [place] [address] Sherly Ballard MD Med Refill 05/08/2025 Telephone [facility] [address] [place] [address] Tarka, Jackie, OD 05/02/2025 Telephone [facility] [address] [place] [address] Sherly Ballard MD chart prep from Last 3 Months Family History Medical History Relation Name Comments DM2,CAD Father Throat cancer Maternal Grandmother HTN Mother unspecified cancer Mother's Brother Relation Name Status Comments Father Maternal Grandmother Mother Mother's Brother Social History Tobacco Use Types Packs/Day Years Used Date Smoking Tobacco: Some Days Cigarettes Passive Smoke Exposure: Current Smokeless Tobacco: Never Tobacco Cessation:Ready to Q uit: Not Asked; Counseling Given: Not Answered Comments:Started smoking 28 y [...] Sign Reading Time Taken Comments Blood Pressure 127/84 07/15/2025 3:21 PM EST Pulse 78 07/15/2025 3:21 PM EST Temperature 36.6 C (97.8 F) 07/15/2025 3:21 PM EST Respiratory Rate 19 07/15/2025 3:21 PM EST Oxygen Saturation 98% 07/15/2025 3:21 PM EST Inhaled Oxygen Concentration - - Weight 82.6 kg (182 lb 3.2 oz) 07/15/2025 3:21 P M EST Height 162.6 cm (5' 4 ) 07/15/2025 3:21 PM EST Body Mass Index 31.27 07/15/2025 3:21 PM EST Plan of Treatment Upcoming Encounters Date Type Department Care Team (Late st Contact Info) Description 08/21/2025 9:00 AM EST Office Visit [facility] [address] [place] [address] Sherly Ballard MD [address] [place] [address] 10/17/2025 9:30 AM EST Office Visit [facility] [address] [place] [address] Jackie Alonzo, OD [address] [place] [address] Health Maintenance Due Date Last Done Comments CT Colonography 1973 Colonoscopy 1973 Colorectal Cancer Screening 1973 Dental Oral Exam 1973 Dental Prophylaxis 1973 Dental X-Ray: Bitewings 1973 FIT DNA/Cologuard 1973 FIT 1973 FOBT 1973 HIV Screening 1973 Lipid Panel 1973 Sigmoidoscopy 1973 Disability Screening 1973 Diabetes: Foot Exam 1983 Family Planning (PISQ) 1988 Hepatitis C Screening 1991 DTaP/Tdap/Td Vaccines (1 - Tdap) 1992 Diabetes: Urine Protein Screening 1992 Hepatitis B Vaccines (1 of 3 - 19+ 3-dose series) 1992 Pneumococcal Vaccine: 50+ Years (1 of 2 - PCV) 1992 Zoster Vaccines (1 of 2) 2023 COVID-19 Vaccine (1 - season) 2025 Influenza Vaccine (#1) 2025 Diabetes: Hemoglobin A1C 04/24/2025 025, 05/02/2024, 01/24/2024, Additional history exists Depression Screening 05/02/2025 05/02/2024, 05/02/20 24 Alcohol/Substance Use Screening 12/26/2025 12/26/2024 SDOH Screening 12/26/2025 12/26/2024 Eye Exam 05/03/2026 05/03/2024, 04/15, 05/03/2024, Additional history exists Tobacco Screening 07/16/2026 07/16/2025 Dental X-Ray: Full Mouth 04/18/2028 04/17/2025 RSV Patients and Patients Aged 60 years [...] patient's age to complete this topic Meningococcal B Vaccine Aged Out No l onger eligible based on patient's age to complete this topic Meningococcal Vaccine Aged Out No pattie everett eligible based on patient's age to complete this topic RSV under 20 months Aged Out No longe r eligible based on patient's age to complete this topic Rotavirus Vaccines Aged Out No longer eligible based on patient's age to complete this topic Goals Goal Patient Goal Type Associated Problems Recent Progress Patient-Stated? Author Help patients manage their type 2 diabetes Care Plan Help patients manage their type 2 diabetes No Silva Daugherty MA Weekly blood pressure task Care Plan Weekly blood pressure task No Silav Daugherty MA Help patients manage their type 2 diabetes Care Plan Help patients manage their type 2 diabetes No Silva Daugherty MA Patient has chronic kidney disease Care Plan Patient has chronic kidney disease No Silva Daugherty MA Weekly blood pressure task Care Plan Weekly blood pressure task No Silva Daugherty MA Patient has chronic kidney disease Care Plan Patient has chronic kidney disease No Silva Daugherty MA Procedures Procedure Name Priority Date/Time Associated Diagnosis Comments POCT COVID-19 AG KOEHLER ID NOW Routine 07/15/2025 3:30 PM EST Acute cough POCT INFLUENZA B (ID NOW RAPID MOLECULAR) Routine 07/15/2025 3:30 PM EST Acute cough POCT INFLUENZA A (ID NOW RAPID MOLECULAR) Routine 07/15/2025 3:30 PM EST Acute cough POCT GLYCATED HEMOGLOBIN, TOTAL Routine 10/22/2024 12:02 PM EDT Hypertension associated with diabetes (CMS/HCC) (CMS/HCC) from Last 3 Months or Most Recently Relevant to Health Maintenance Results * Influenza B (ID NOW Rapid Molecular) (07/15/2025 3:30 PM EST) Influenza B Negative Negative, Indeterminate [facility] Swab 07/15/2025 3:30 PM EST [facility] Appra ENTRY LEVEL WEB DEVELOPER POINT OF CARE TEST ENTER/EDIT O RDERABLES Final Result Performing Organization Address [facility]/ZIP Co de Phone Number [facility] [address] [place] [phone] * (ABNORMAL) Influenza A (ID NOW Rapid Molecular) (07/15/2025 3:30 PM EST) Influenza A Positive( A) Negative, Indeterminate [facility] Swab 07/15/2025 3:30 PM EST [employer] [facility] ENTRY LEVEL WEB DEVELOPER POINT OF CARE TEST ENTER/EDIT O RDERABLES Final Result Performing Organization Address [facility]/ZIP Co de Phone Number [facility] [address] [place] [phone] * POCT COVID-19 Ag Koehler ID NOW (07/15/2025 3:30 PM EST) Pathologist [facility] Coronavirus Antigen PCR Negative Negative, Indeterminate, None Detected, Trace, 3+, Specimen unsatisfactory for evaluation, Weakly Positive, 1+, 2+ Swab 07/15/2025 3:30 PM EST Veronica Patel ENTRY LEVEL WEB DEVELOPER POINT OF CARE TEST ENTER/EDIT O RDERABLES Final Result * POCT HGB A1C (10/22/2024 12:02 PM EDT) Hemoglobin A1C 5.9 4.0 - 6.0 % QC Media Lot # [id number] Lot# Expiration Date ,[id number] Blood 10/22/2024 12:0 2 PM EDT Angy SANDERS POINT OF CARE TEST ENTER/EDIT OR DERABLES Final Result from Last 3 Months or Most Recently Relevant to Health Maintenance Additional Health Concerns Active Problems Noted Date Diagnosed Date Help patients manage their type 2 diabetes 07/15 Weekly blood pressure task 07/15/2025 Help patients manage their type 2 diabetes 07/15 Patient has chronic kidney disease 07/15/2025 Weekly blood pressure task 07/15/2025 Patient has chronic kidney disease 07/15/2025 Insurance C3 HSN PARTIAL D[facility]AL-[facility] MEDICA[facility] STAND ADULT Care Teams Manufacturing Engineering Technologist Relationship Specialty Start Date End Date Sherly Ballard MD [address] [place] [address] [phone] PCP - General Internal Medicine 05/02/24
--- OUTSIDE RECORDS SUMMARY | 2025-07-31 03:05 | XMS_ITS | Encounter Summary ---
Author Organization [employer] Address [address] [place] [address] [address] [place] [address] Care Team Providers Care Customer Experience Consultant Name Role Phone Sherly Ballard MD Primary Care Pro vider Encounter Details Date Type Department Care Team (Late Contact Info) Description 04/15/2024 Orders Only [facility]S [address] [place], [place] [phone] Bhavana Cary FNP [address] [place] [address] Sexually transmitted disease exposure (Primary Dx) Social [...] Description 08/21/2025 9:00 AM EST Office Visit [facility] MEDICINE [address] [place] [address] Sherly Ballard MD [address] [place] [address] 10/17/2025 9:30 AM EST Office Visit [facility] OPTOMETRY [address] [place] [address] Jackie Alonzo, OD [address] [place] [address] Scheduled Orders Name Type Priority Associated Diagnoses Orde r Schedule RPR (Monitor) with Reflex to Titer Lab Routine Sexually transmitted disease exposure Expected: 04/15/2024 (Approximate), Expires: 04/15/2025 documented as of this encounter Visit Diagnoses Diagnosis Sexually transmitted disease exposure- Primary Contact with or exposure to venereal diseases documented in this encounter Care Teams Customer Experience Consultant Relationship Specialty Start Date End Date Sherly Ballard MD [address] [place] [phone] PCP - General Internal Medicine 05/02/24 documented as of this encounter
--- OUTSIDE RECORDS SUMMARY | 2025-07-31 03:05 | XMS_ITS | Encounter Summary ---
Author Organization [employer] Address [address] [place] [address] [address] [place] [address] Care Team Providers Care Contemporary Or Modern Dancer Name Role Phone Sherly Ballard MD Primary Care Pro vider Reason for Visit * Reason Comments Med Refill Encounter Details Date Type Department Care Team (Late Contact Info) Description 04/10/2024 Refill [facility] [address] [place] [phone] Bradly Vann MD [address] [place] [phone] Degenerative arthritis of metacarpophalangeal joint of right [...] Department Care Team (Late Contact Info) Description 08/21/2025 9:00 AM EST Office Visit [facility] MED[facility] [address] [place] [address] Sherly Ballard MD [address] [place] [address] 10/17/2025 9:30 AM EST Office Visit [facility] OPTOMETRY [address] [place] [address] Jackie Alonzo, OD [address] [place] [address] documented as of this encounter Visit Diagnoses Diagnosis 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
[2025-07-31 03:14] LABS: Hematocrit 40.5 % (42.0-52.0); Hemoglobin 14.3 g/dl (14.0-18.0); Imm Gran Abs Auto 0.02 X10*3/uL (0.00-0.03); Imm Gran Pct Auto 0.3 % (0.0-0.4); Lymphocytes Absolute Auto 2.0 X10*3/uL (1.2-4.9); MANUAL DIFF FLAG NO; Mean Corpuscular HGB Conc 35.3 g/dl (31.0-36.0); Mean Corpuscular Hemoglobin 29.5 pg (27.0-33.0); Mean Corpuscular Volume 83.7 fL (80.0-98.0); NRBC Abs Auto 0.000 X10*3/uL (0.0-0.012); NRBC Pct Auto 0.0 /100WBC (0.0-0.2); Platelet Count 171 X10*3/uL (160-400); Red Blood Count 4.84 X10*6/uL (4.60-5.80); White Blood Count 7.6 X10*3/uL (4.8-10.8)
[2025-07-31 03:47] LABS: Troponin-I High Sensitivity < 2.7 ng/L (<3.5-35.0)
[2025-07-31 03:54] LABS: Resp Syncy Virus RNA Qual PCR NEGATIVE (Negative); SARS COV2 PCR INHOUSE NEGATIVE (Negative)
[2025-07-31 04:03] LABS: Anion Gap 18 (12-20); Blood Urea Nitrogen 20 mg/dL (9-16); Calcium 8.8 mg/dL (8.4-10.2); Carbon Dioxide 21 mmol/L (22-29); Chloride 103 mmol/L (96-108); Creatinine Clr Calc Pharmacy 100.1; Estimated Glomerular Filt Rate > 60; Potassium 3.6 mmol/L (3.3-5.1); Sodium 138 mmol/L (135-145)
--- NOTE | 2025-07-31 04:34 | PC.NURSE ---
pt from triage found AOx4 in his stretcher irish speaking only, sign language interpreter used to evaluate pt. PT reports he was dx with flu A x2 weeks ago and is has been experiencing right sided chest pain along his diaphragm. PT described the pain as 6/10 stabbing that onset 0700 yesterday. PT denies any other complaints at this time.VSS.
[2025-07-31 05:31] VITALS: BP 137/78; PULSE 79; RESP 17; TEMP 36.6; O2SAT 96
--- NOTE | 2025-07-31 06:30 | ED_ITS ---
HPI - Chest Pain General Chief Complaint: Chest Pain Stated Complaint: CP Time Seen by Provider: 07/31/25 05:59 Source: patient Mode of arrival: ambulatory Limitations: no limitations History of Present Illness ED Provider: Polina Tejeda PA-C HPI narrative: 50 yo male with history of recent Influenza infection presents to the ER for evaluation of acute onset of chest pain that started yesterday morning around 7am after taking magnesium tablet for sleep. He reports the pain is in the right side of his chest and is sharp, worse when he lays on his left side and moves. 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 He states he is getting over the flu and just went back to work 2 days ago. He had to do a bunch of heavy lifting at work and the pain started shortly after. no assocaited nausea, vomiting, sob, headache, arm pain, neck pain. MD complaint: chest pain Onset (ago): hour(s) Timing of current episode: constant Pain location: right chest Pain radiation: none Severity: moderate Quality: sharp Relieving factors: nothing Exacerbating factors: palpation and movement Treatment prior to arrival: none Risk Factors Coronary artery disease risk factors: none Thoracic aortic dissection risk factors: none Related Data Previous Rx's ?Medication ?Instructions ?Recorded clotrimazole 1 % topical cream 1 appl topical BID 2 we eks #15 01/09/24 grams Allergies Allergy/AdvReac Type Severity Reaction Status Date / Time diphenhydramine (From Allergy Palpitation Verified 07/31/25 02:59 Benadryl) s Review of Systems 2 Review of Systems: Yes all other systems are reviewed and are negative [facility] Social History Social History (System 01/12/24 @ 16:01 by Chiqui Staley) Alcohol intake: current Alcohol intake frequency: a few times a week Physical Exam 2 Exam: Exam: Appearance: Alert. Oriented X3. No acute distress. HEENT: normal external inspection Neck: Normal inspection. Neck supple. CVS: Normal heart rate and rhythm. Pulses normal. Right anterior chest wall w/ mild tenderness. Respiratory: No respiratory distress. Breath sounds normal. Abdomen: Soft and nontender. +BS x4 Skin: Skin warm and dry. Normal skin color. Normal skin turgor. No rashes. Extremities: No lower extremity edema. No joint swelling. Neuro/psych: Oriented X 3. nonfocal. Normal speech and cognition. Vital Signs: Vital Signs: Last Vital Signs Temp 97.9 F 07/31/25 07:36 Pulse 75 07/31/25 07:36 Resp 16 07/31/25 07:36 BP 128/75 07/31/25 07:36 Pulse Ox 96 07/31/25 07:36 O2 Del Method Room Air 07/31/25 07:36 BMI result Body Mass Index 29.2 Medications Administered Discontinued Medications Generic Name Dose Route Start Last Admin Trade Name Penny PRN Reason Stop Dose Admin Ibuprofen 600 mg 07/31/25 07:23 07/31/25 07:32 Ibuprofen 600 Mg Tablet PO 07/31/25 07:24 600 mg ONCE ONE Administration Medical Decision Making Medical Decision Making [facility] Narrative: 50-year-old male presents to the ER for evaluation of chest pain that started yesterday morning. His on the right side of his chest, worse when he lays on his left side and moves. It started after he went back to work after having the flu and did a lot of heavy lifting. EKG without any acute ischemic changes. Troponin negative x1. Declining to get 2nd troponin and wants to go home to sleep so he can go to work later. He is feeling better. Doubt cardiac etiology, most likely muscular or costochondritis. We discussed supportive care, treatment with anti-inflammatories and Tylenol, rest as well as return precautions. Stable for discharge home Differential Diagnosis Differential Diagnoses: The differential diagnosis associated with the presentation includes costochondritis, MSK pain, PNA, ACS, PE Admission/Observation Consideration of admission/observation: Escalation of care including admission/observation considered Lab Data [facility] Lab Attestation statement: I reviewed the patient's lab results. Negative troponin x2, no major metabolic derangement 07/31/25 03:07 07/31/25 03:07 Labs: Lab Results 07/31/25 Range/Units 03:07 WBC 7.6 (4.8-10.8) X10*3/uL RBC 4.84 (4.60-5.80) X10*6/uL Hgb 14.3 (14.0-18.0) g/dl Hct 40.5 L (42.0-52.0) % MCV 83.7 (80.0-98.0) fL MCH 29.5 (27.0-33.0) pg MCHC 35.3 (31.0-36.0) g/dl RDW 12.7 (11.0-16.0) % Plt Count 171 (160-400) X10*3/uL MPV 11.5 (9.4-12.4) fL Immature Gran % (Auto) 0.3 (0.0-0.4) % Neut % (Auto) 63.7 (45-73) % Lymph % (Auto) 26.2 (20-40) % Cameron % (Auto) 8.8 (2-11) % Eos % (Auto) 0.7 (0-4) % Baso % (Auto) 0.3 (0-2) % Lymph # (Auto) 2.0 (1.2-4.9) X10*3/uL Cameron # (Auto) 0.7 (0.1-1.2) X10*3/uL Eos # (Auto) 0.1 (0.0-0.4) X10*3/uL Baso # (Auto) 0.0 (0.0-0.2) X10*3/uL Abs Immat Gran (auto) 0.02 (0.00-0.03) X10*3/uL Absolute Neuts (auto) 4.9 (2.0-8.3) x10*3/uL Absolute Nucleated RBC 0.000 (0.0-0.012) X10*3/uL Nucleated RBC % (auto) 0.0 (0.0-0.2) /100WBC Sodium 138 (135-145) mmol/L Potassium 3.6 (3.3-5.1) mmol/L Chloride 103 (96-108) mmol/L Carbon Dioxide 21 L (22-29) mmol/L Anion Gap 18 (12-20) BUN 20 H (9-16) mg/dL Creatinine 0.81 (0.5-1.4) mg/dL Estim Creat Clear Calc 100.1 Estimated GFR > 60 Random Glucose 112 (60-115) mg/dL Calcium 8.8 (8.4-10.2) mg/dL Troponin I High Sens < 2.7 (<3.5-35.0) ng/L Influenza Type A (PCR) NEGATIVE (Negative) Influenza Type B (PCR) NEGATIVE (Negative) RSV RNA Qual (PCR) NEGATIVE (Negative) SARS-CoV-2 RNA (RT-PCR) NEGATIVE (Negative) Independent Interpretation I performed an independent interpretation of an: EKG and Plain X-Ray Interpretation: Normal sinus rhythm with ventricular rate 90 beats per minute, no ST segment elevations or depressions, normal ND interval, normal QTC Chest x-ray is clear with no focal opacity or effusion Radiology Impression Discussion of test interpretation with radiology: I have reviewed the radiologist's reading. External Record Review External record reviewed: Prior outpatient labs and Prior outpatient radiology Tests considered The following testing was considered but not selected: CTA considered, low suspicion for PE Prescription Management I considered prescription management with: Pain Medication Critical Care Time Critical Care Time Critical Care Time: No Discharge Plan Discharge Clinical Impression: Atypical chest pain Patient Disposition: Home, Self-Care Instructions: Chest Pain (DC) Additional Instructions: your workup today was reassuring and unremarkable your pain is most likely muscular take motrin and tylenol as needed for pain recommend trial of melatonin 5mg for sleep. take it 30 minutes before you go to bed follow up with your doctor If you develop new or worsening symptoms call 911 or come back to the ER for further evaluation. Prescriptions: No Action clotrimazole 1 % cream 1 appl topical BID 14 Days Qty: 15 0RF Referrals: Sherly Ballard MD [Primary Care Provider, Internal Medicine] Interventions: ED Discharge Assessment Last Done: 07/31/25 07:36 Discharge Date/Time: 07/31/25 07:37 Print Language: Kinyarwanda
[2025-07-31 07:36] VITALS: BP 128/75; PULSE 75; RESP 16; TEMP 36.6; O2SAT 96
== END 2025-07-31 07:37 | disposition home or self-care (01) ==
PROVIDERS: Emergency Provider Emergency Medicine Emergency Medical Services; PCP Student in an Organized Health Care Education/Training Program
DX: R07.89 Other chest pain (principal); Z03.818 Encounter for observation for suspected exposure to other biological agents ruled out
CPT/HCPCS: 71046; 80048; 84484; 85025; 87637; 93005; 99283; 99285

== ENCOUNTER → 2025-07-31 02:39 | Outpatient (BNV) | payer MEDICAID, SELFPAY | PROVIDERS: Emergency Provider Emergency Medicine Emergency Medical Services; PCP Student in an Organized Health Care Education/Training Program; Visit Provider Internal Medicine Cardiovascular Disease | DX: R07.9 Chest pain, unspecified (principal) | CPT/HCPCS: 93010 ==

== ENCOUNTER → 2025-07-31 03:22 | Outpatient (BNV) | payer MEDICAID, SELFPAY | PROVIDERS: PCP Student in an Organized Health Care Education/Training Program; Visit Provider Radiology Diagnostic Radiology | DX: R07.9 Chest pain, unspecified (principal) | CPT/HCPCS: 71046 ==